=== PATIENT | female | born 1995 | race Caucasian/White ===

== ENCOUNTER 2018-07-03 09:18 | Emergency (ER) | payer MEDICAID, SELFPAY ==
[2018-07-03 09:19] VITALS: BP 129/85; PULSE 86; RESP 16; TEMP 36.6; O2SAT 97; BMI 39.9
--- NOTE | 2018-07-03 09:30 | ED.VISSUMM ---
- ER Visit Summary Date of Service: 07/03/18 Chief Complaint: Possible allergic reaction History of Present Illness: The patient is a 22 F presenting due to concern for an allergic reaction. Patient states she had her wisdom teeth out on Friday. She reports that yesterday she started to have a feeling of scratchiness in her throat and some difficulty swallowing and then today she developed some redness on the dorsum of her hands, in her antecubital spaces, and on her back. She reports that it is significantly itchy. She is concerned that maybe she was bit by something but nobody else in the house has any sort of similar skin rashes. Patient is of note taking hydrocodone for pain control from her wisdom tooth extraction. She is not on any sort of other medications. Physical Examination: Vital signs within normal limits. Well-nourished obese female no acute distress. Head normocephalic. Oropharynx is clear without any evidence of fullness, no evidence of stridor. Neck is supple. Heart was regular rate and rhythm. Respirations were nondistressed. Active range of motion of the hands and legs with no evidence of trauma. Examination of patient's skin shows some erythema on the dorsum of the hands. On the right index finger there are 2 punctate areas that potentially could be bug bites or just might be excoriations from patient scratching. She also has some areas of redness in her antecubital areas and on her back bilaterally. Test Results: None indicated Emergency Department Course and Treatment: Patient presented due to concern for allergic reaction. Patient is either having a mild allergy or is having a side effect to her [place]. She was given a dose of Kenalog if this is a case of an allergy I believe that that will alleviate this. Patient was given Vistaril for treatment of her symptoms. Disposition: Discharge Impression: 1. Urticaria This note was generated with [employer] dictation software. It may contain incorrect words, spelling, and punctuation that were not noted in review of the chart prior to signing ED Disposition - Plan for ED Patient: Disposition: Home or Assisted Living Chief Complaint: Allergic Reaction Diagnosis: Urticaria Instructions: ED Drug React Adverse Other Prescriptions: hydrOXYzine pamoate capsule [Vistaril] 50 mg PO TID PRN PRN #30 cap PRN Reason: Itching Referrals: NOT,DEFINED [NON-STAFF] -
[2018-07-03] MEDS: Triamcinolone Acetonide 40 MG/ML Vial IM (09:34)
[2018-07-03] MEDS: hydrOXYzine PAM 25 MG Capsule PO (09:34)
[2018-07-03 10:19] VITALS: BP 137/84; PULSE 87; RESP 18; O2SAT 100
== END 2018-07-03 10:19 | disposition home or self-care (01) ==
PROVIDERS: Emergency Provider Emergency Medicine
DX: L50.9 Urticaria, unspecified (principal); E66.9 Obesity, unspecified; Z72.0 Tobacco use
CPT/HCPCS: 96372; 99283

== ENCOUNTER → 2018-07-23 14:28 | Outpatient (CLI) | payer MEDICAID, SELFPAY ==
[2018-07-29 19:32] LABS: HPV Reflexed? NOT INDICATED
== END ==
PROVIDERS: Visit Provider Obstetrics & Gynecology
DX: Z12.4 Encounter for screening for malignant neoplasm of cervix (principal)
CPT/HCPCS: 88175; G0145

== ENCOUNTER → 2018-11-02 10:25 | Outpatient (CLI) | payer MEDICAID, SELFPAY ==
[2018-11-02 13:47] LABS: Hemoglobin A1c 5.3 % (4.2-6.3)
[2018-11-02 13:52] LABS: Progesterone Level 0.34 ng/mL (See Comment); hCG Titer Quant., Serum < 1 mIU/mL (<9 non-preg)
[2018-11-02 13:55] LABS: Follicle Stimulating Hormone 2.4 mIU/mL; Free T3 2.8 pg/mL (2.18-3.98); Glucose 110 mg/dL (74-106); Luteinizing Hormone 3.4 mIU/mL; T4 Free Direct 0.95 ng/dL (0.76-1.46); Thyroid Stim Hormone (TSH) 1.56 uIU/mL (0.358-3.74)
== END ==
PROVIDERS: Visit Provider Obstetrics & Gynecology
DX: N92.5 Other specified irregular menstruation (principal)
CPT/HCPCS: 36415; 82947; 83001; 83002; 83036; 84144; 84146; 84439; 84443; 84481; 84702

== ENCOUNTER 2019-01-29 09:45 | Emergency (ER) | payer MEDICAID, SELFPAY ==
[2019-01-29 09:46] VITALS: BP 138/75; PULSE 88; RESP 18; TEMP 36.5; O2SAT 98; BMI 36.0
[2019-01-29 09:58] VITALS: TEMP 36.5
--- NOTE | 2019-01-29 09:59 | ED.DCSUM_ITS ---
- ER Visit Summary Date of Service: 01/29/19 Chief Complaint: Cough and fever History of Present Illness: The patient is a 23 F who presents with cough and fever that has been getting worse over the past 2 days. Patient states her fever was up to 102 at home last night. Patient admits to sore throat and r hinorrhea. Patient states she has some shortness of breath with exertion. Patient describes the pain as a burning. Patient states this is localized to her chest. Patient states she is coughing up some green sputum. Patient admits to some nausea but denies any vomiting. Patient also admits to a headache and upper respiratory congestion. Physical Examination: Vital signs are stable. Patient is afebrile. Patient is in no acute distress. Oral mucosa is pink and moist. Oropharynx shows some postnasal drainage but was otherwise clear. Neck is supple. Trachea is midl ine. There is no JVD or lymphadenopathy noted. Heart was regular rate and rhythm. Lungs showed some rhonchi in the bases bilaterally. There is good respiratory effort noted. Abdomen is soft. There is no tenderness. Cranial nerves II through XII are intact. There are no focal motor or sensory deficits noted. Test Results: PA and lateral chest x-ray was obtained. There is no acute cardiopulmonary process noted. Emergency Department Course and Treatment: Patient felt better on reevaluation. Patient was advised that this is most likely a viral upper respiratory infection/bronchitis. Patient was advised antibiotics are not indicated at this time. Patient was given a prescription for Tessalon to take as needed for the c ough. Smoking cessation was advised. Patient was instructed to follow-up with her primary care physician in 5 to 7 days. Patient understood and was agreeable with the plan. All questions were answered. Disposition: Discharge home Impression: Viral upper respiratory infection with cough This note was generated with [employer] dictation software. It may contain incorrect words, spelling, and punctuation that were not noted in review of the chart prior to signing ED Disposition - Plan for ED Patient: Disposition: Home or Assisted Living Diagnosis: Viral upper respiratory tract infection with cough Instructions: ED Upper Resp Infec No Abx Tx, ED Smoking Cessation Prescriptions: Benzonatate [Tessalon [place]] 200 mg PO TID PRN PRN #20 cap PRN Reason: Cough Referrals: Care Physician,No Primary [Primary Care Provider] - Alyssia Rodriguez DO [STAFF PHYSICIAN] - 5-7 Days
--- NOTE | 2019-01-29 10:00 | RAD_ITS ---
STUDY: X-RAY CHEST REASON FOR EXAM: Female, 23 years old. Cough and hoarseness for 2 days. TECHNIQUE: Frontal and lateral views of the chest. COMPARISON: None. FINDINGS: The lungs are clear and expanded. There is no demonstrated pleural abnormality. Normal size heart. Normal mediastinum and [place]. Normal visualized pulmonary arteries. Normal visualized aortic arch and descending thoracic aorta. Normal visualized thoracic spine. Normal visualized ribs, clavicles, and shoulders. There is no demonstrated abnormality of the visualized soft tissue structures of the upper abdomen. RAD/Chest PA and Lateral IMPRESSION: Normal x-ray examination of the chest. Electronically Signed: Brant Duggan MD at 10:14 EDT , Service support ,
== END 2019-01-29 10:36 | disposition home or self-care (01) ==
PROVIDERS: Emergency Provider Emergency Medicine
DX: J06.9 Acute upper respiratory infection, unspecified (principal); R05 Cough; E66.9 Obesity, unspecified; F17.210 Nicotine dependence, cigarettes, uncomplicated
CPT/HCPCS: 71046; 99282

== ENCOUNTER 2020-10-20 20:29 | Emergency (ER) | payer MEDICAID, SELFPAY ==
[2020-10-20 20:30] VITALS: BP 122/89; PULSE 82; RESP 16; TEMP 36.2; O2SAT 100; BMI 33.6
--- NOTE | 2020-10-20 20:42 | US_ITS ---
STUDY: FIRST TRIMESTER OBSTETRICAL ULTRASOUND REASON FOR EXAM: Female, 25 years old DRIED BLOOD IN UNDERWEAR AND LOWER ABD PAIN FOR WEEKS MILD LMP: 08/30/2020 TECHNIQUE: Transvaginal. TECHNICAL QUALITY: Adequate. PRIOR ULTRASOUND: None. FINDINGS: There is visualization of a single gestational sac in a normal intrauterine position. The mean sac diameter (MSD) measures 1.0 cm, indicating an estimated gestational age (EGA) of 5 weeks, 5 days. The gestational sac shape is within normal limits. There is no demonstrated yolk sac. The placenta is non-visualized. There is no demonstrated embryo ( pole). The estimated gestation age (EGA) by LMP is 7 weeks, 2 days. The estimated date of delivery (TRISTON) by LMP is 06/06/2021. The estimated gestation age (EGA) by US is 5 weeks, 5 days. The estimated date of delivery (TRISTON) by US is 06/17/2021. The uterus measures 10.1 x 5.2 x 0.4 cm. There is no demonstrated uterine fibroid. The cervix is closed. The right ovary measures 3.2 x 2.1 x 2.1 cm. There is no right ovarian cyst. There is no visualized right adnexal mass or complex lesion. The left ovary measures 2.5 x 1.6 x 2.1 cm. There is no left ovarian cyst. There are prominent vessels within the left adnexa. It is indeterminate 1.0 x 1.4 cm cystic focus within the left adnexa may reflect a paraovarian cyst. There is no fluid in the cul de sac. US/Transvaginal w/Preg US IMPRESSION: Findings suggestive of an early intrauterine with an estimated gestational age of 5 weeks and 5 days. No yolk sac nor pole identified. Prominent vessels within the left adnexa may be secondary to pelvic congestion syndrome. Electronically Signed: Jada Johnson MD at 21:47 EST Tel , Service support ,
--- NOTE | 2020-10-20 20:43 | ED.VIS.GEN ---
History of Present Illness Chief Complaint: Vag Bld, Preg Informant: Patient Narrative: 25-year-old G4, P2 at approximately 7 to 8 weeks presents with concern for vaginal bleeding and abdominal pain. States that she had a large amount of blood on tissue paper when wiping after urinating approximately 1 hour ago. States that she has had abdominal cramping and lower abdominal pain over the past 2 to 3 days. States that she has had 2 previous miscarriages. Denies any fever or chills. Denies any vaginal trauma. Denies any passage of tissue. Past Medical History - Allergies and Home Meds Allergies/Adverse Reactions: Allergies No Known Allergies Allergy (Verified 10/20/20 20:29) Primary Care Physician: Care Physician,No Primary [Primary Care Provider] - Prior records reviewed: Yes Past Medical History: None Surgical History: no surgical history Lives: Spouse/ Significant Other Smoking Status: Current every day smoker Alcohol: None Drugs: None Review of Systems General: Denies: Chills, Fever, Sweats Eyes: Denies: Visual changes - bilaterally, Diplopia ENT: Denies: Rhinorrhea, Sore throat Cardiovascular: Denies: Chest pain, Palpitations Respiratory: Denies: Dyspnea, Cough, Dyspnea on exertion Gastrointestinal: Denies: Abdominal pain, Nausea, Vomiting, Diarrhea, Melena, Hematochezia Genitourinary: Reports: - - vaginal bleeding and pelvic pain. Denies: Dysuria, Hematuria, Frequency Musculoskeletal: Denies: Back pain, Extremity Pain Skin: Denies: Rash, Wounds Neurological: Denies: Headache, Weakness, Numbness Physical Exam Vital Signs/Narrative: Vital Signs Temp Pulse Resp BP Pulse Ox 10/20/20 20:30 97.2 F L 82 16 122/89 H 100 Inital Vital Signs reviewed: Yes General: Well nourished, Well developed, No Acute Distress Head: Normocephalic, Atraumatic Eyes: Perrl, EOMI ENT: Moist mucous membranes, No rhinorrhea Neck: Supple, Nontender Cardiovascular: Regular rate, Regular rhythm, No murmurs Respiratory: No distress, CTA bilaterally, Chest nontender Abdomen: Soft, Nontender, Nondistended, Normal bowel sounds Back: Nontender, Normal Inspection Extremities: Nontender, No edema Skin: Normal color, No rash Neurological: Alert, Oriented x3, Cranial nerves II-XII grossly intact, Normal Strength, Normal Sensation Psychological: Normal affect, Normal Mood Diagnostic/Tx/Re-eval Clinical Impression(s) from Imaging Studies Obstetrics Ultrasound 10/20/20 20:42 IMPRESSION: Findings suggestive of an early intrauterine with an estimated gestational age of 5 weeks and 5 days. No yolk sac nor pole identified. Prominent vessels within the left adnexa may be secondary to pelvic congestion syndrome. Electronically Signed: Jada Johnson MD at 21:47 EST Tel , Service support , Laboratory Data 10/20/20 10/20/20 20:44 21:00 HCG, Quant 6714 H Urine Color Yellow Urine Clarity Clear Urine pH 5.0 Ur Specific [place] 1.025 Urine Protein 15 H Urine Glucose (UA) Normal Urine Ketones 5 H Urine Occult Blood 250 H Urine Nitrite Negative Urine Bilirubin Negative Urine Urobilinogen Normal Ur Leukocyte Esterase 100 H Urine RBC 0-5 SEEN Urine WBC 5-10 SEEN Ur Squamous Epith Cells 5-10 SEEN Urine Bacteria 0 SEEN Urine Mucus 2+ - Medical Decision Making Patient appears well and nontoxic. Vital signs within normal limits. No significant vaginal bleeding. hCG of 6700. Transvaginal ultrasound shows a gestational sac without yolk sac. Estimated age 5 weeks. Patient's last menstrual period was proxy 7 weeks. Patient was advised she needs to have her hCG rechecked on Friday at her [facility]. Asked return for any increasing pain. No evidence of adnexal mass. Patient agreeable and stable at time of discharge. Impression: 1. Threatened ED Disposition - Plan for ED Patient: Disposition: Home or Assisted Living Instructions: ED Possible Miscarriage ... Additional Instructions: Please see your OBGYN on Monday 10/23 for repeat HCG. Return for worsening pain or heavy bleeding.
[2020-10-20 20:52] LABS: Bacteria 0 SEEN /hpf (None Seen)
[2020-10-20 20:57] LABS: Color, Urine Yellow (Yellow); Glucose, Dipstick Normal (Normal); Ketone-Dipstick 5 mg/dl (Negative); Leukocyte Esterase-Dipstick 100 /ul (Negative); Nitrite-Dipstick Negative (Negative); Occult Blood-Urine 250 /ul (Negative); Protein-Dipstick 15 mg/dl (Negative); Specific Gravity, Urine 1.025 (1.002-1.030); Urine Bilirubin Dipstick Negative (Negative); Urine Clarity Clear (Clear); Urine Urobilinogen Normal (Normal)
[2020-10-20 21:18] LABS: Red Blood Cells-Urine 0-5 SEEN /hpf (0-5); White Blood Cells 5-10 SEEN /hpf (0-5)
[2020-10-20 21:19] LABS: Mucous, Urine 2+ /hpf (<or=2+); Squamous Epithelial Cells - UA 5-10 SEEN /hpf (5-10)
[2020-10-20 21:46] LABS: hCG Titer Quant., Serum 6714 mIU/mL (1-3)
== END 2020-10-20 22:43 | disposition home or self-care (01) ==
PROVIDERS: Emergency Provider Emergency Medicine
DX: O20.0 Threatened abortion (principal); O99.331 Smoking (tobacco) complicating pregnancy, first trimester; F17.200 Nicotine dependence, unspecified, uncomplicated; Z3A.01 Less than 8 weeks gestation of pregnancy
CPT/HCPCS: 76817; 81001; 84702; 99282

== ENCOUNTER → 2020-11-07 13:53 | Outpatient (CLI) | payer MEDICAID, SELFPAY ==
[2020-10-20 20:30] VITALS: BMI 33.6
[2020-11-07 14:59] LABS: T4 Free Direct 1.03 ng/dL (0.76-1.46); Thyroid Stim Hormone (TSH) 0.96 uIU/mL (0.358-3.74)
[2020-11-07 15:06] LABS: hCG Titer Quant., Serum 30892 mIU/mL (1-3)
[2020-11-10 16:08] LABS: Dilute Prothrombin Time (dPT) 34.9 sec (0.0-55.0); Dilute Russell Viper Venom 37.1 sec (0.0-47.0); PTT-LA 34.5 sec (0.0-51.9); Thrombin Time 16.2 sec (0.0-23.0); dPT Confirm Ratio 1.19 Ratio (0.00-1.40)
[2020-11-10 16:41] LABS: Anti-Cardiolipin Ab, IgA, Qn < 9 APL U/mL (0-11); Anti-Cardiolipin Ab, IgG, Qn 13 GPL U/mL (0-14); Anti-Cardiolipin Ab, IgM, Qn 15 MPL U/mL (0-12); Beta-2-Glycoprotein I IgA <9 (0-25); Beta-2-Glycoprotein I IgG <9 (0-20); Beta-2-Glycoprotein I IgM <9 (0-32); Interpretation Comment: (.)
== END ==
PROVIDERS: Visit Provider Student in an Organized Health Care Education/Training Program
DX: O03.9 Complete or unspecified spontaneous abortion without complication (principal); O26.20 Pregnancy care for patient with recurrent pregnancy loss, unspecified trimester; Z3A.00 Weeks of gestation of pregnancy not specified
CPT/HCPCS: 36415; 84439; 84443; 84702; 86146; 86147

== ENCOUNTER 2020-11-13 02:42 | Observation (INO) | payer MEDICAID, SELFPAY ==
[2020-11-13] VITALS (13 sets, daily range): BP systolic 98–131; BP diastolic 43–108; PULSE 62–134; RESP 16–22; TEMP 36.3–38.1; O2SAT 93–98; BMI 34.7; BMI 34.1
--- NOTE | 2020-11-13 02:53 | US_ITS ---
STUDY: FIRST TRIMESTER OBSTETRICAL ULTRASOUND REASON FOR EXAM: Female, 25 years old . Fever, chills, nausea, vaginal bleeding with clots. Possible incomplete miscarriage, questionable septic . LMP: 08/30/2020. TECHNIQUE: Transvaginal. TECHNICAL QUALITY: Adequate. PRIOR ULTRASOUND: October 20, 2020. FINDINGS: No intrauterine gestational sac. No yolk sac or embryo. The estimated gestation age (EGA) by LMP is 10 weeks, 5 days. The estimated date of delivery (TRISTON) by LMP is 06/06/2021.. The uterus measures 9.8 x 6.4 x 5.5 cm. There is no demonstrated uterine fibroid. Heterogeneous echogenic material within the endometrial canal in the lower uterine segment. Endometrial thickness 11 mm. Diffuse increased vascular flow in the uterus. Clinically, boom pump operator reports patient was bleeding heavily during the exam with clots. The right ovary measures 3.3 x 2.2 x 2.9 cm. There is no right ovarian cyst. There is no visualized right adnexal mass or complex lesion. The left ovary measures 3.9 x 1.8 x 1.7 cm. There is no left ovarian cyst. There is no visualized left adnexal mass or complex lesion. Minimal free fluid in the cul-de-sac. US/Transvaginal w/Preg US IMPRESSION: Heterogeneous material within the endometrial canal may represent retained products of conception. Endometritis is a consideration. No intrauterine gestation. Electronically Signed: Fletcher Desir MD at 4:29 EST , Service support ,
--- NOTE | 2020-11-13 02:56 | ED.DCSUM_ITS ---
- ER Visit Summary Date of Service: 11/13/20 Chief Complaint: Pelvic pain with vaginal bleeding History of Present Illness: The patient is a 25 F G4, P1 AB 3 with those being miscarriages. Patient has no other significant past medical history. She has never had any DATA DELIVERABLES MANAGER surgeries in the past. Patient's last menstrual period was August 30, 2020. In October there was concern that she may have had a threatened miscarriage. Since that time she was diagnosed with an incomplete miscarriage. She is currently on pain medication and misoprostol. States she has had more pain some vaginal bleeding with mucus-like discharge in the last several days. She also has developed fever and chills in the last couple days. Denies dysuria. Denies vomiting or diarrhea. Physical Examination: Young female accompanied by her significant other. Vital signs are stable she does have a temperature of 100.6 orally. She is tachycardic. H EENT exam unremarkable. Neck nontender. Lungs clear to auscultation bilaterally. Heart tachycardic no murmur. Rate about 130. Abdomen soft. Nondistended. She does have suprapubic and bilateral lower quadrant tenderness. Patient is moving all 4 extremities. No edema. Neurologically she is awake and alert with no focal motor deficits. Pelvic exam done with nurse and patient's present in the room. External exam unremarkable. Speculum exam shows vaginal bleeding mild to moderate with clots. Tender uterus. No significant discharge. Test Results: CBC shows a normal white count of 7. Hemoglobin 11.9 which is her baseline. Chemistries unremarkable normal creatinine and gap. Urinalysis pending. Transvaginal pelvic ultrasound shows retained products in the uterus with increased uterine vascularity. This is per the industrial engineering technician that I discussed the results with after the exam. Awaiting formal radiology interpretation. This would be consistent with endometritis post miscarriage. Emergency Department Course and Treatment: AB 3 female with reported incomplete miscarriage concern now is for a septic . Pelvic ultrasound and labs are being obtained. She will be treated with a liter of IV fluids, IV morphine and Zofran for pain and nausea. OB will be notified. Treatment Plan: Patient's history and exam and ultrasound are consistent with endometritis post miscarriage. Patient will be started on IV clindamycin and IV gentamicin. I discussed her care with Dr. Dean Bartlett who is on-call for [facility] DATA DELIVERABLES MANAGER. Patient will be admitted to his service. Disposition: admission Impression: Acute endometritis status post miscarriage (septic miscarriage) This note was generated with [employer] dictation software. It may contain incorrect words, spelling, and punctuation that were not noted in review of the chart prior to signing ED Disposition - Plan for ED Patient: Referrals: Care Physician,No Primary [Primary Care Provider] -
[2020-11-13] MEDS: 0.9% Normal Saline 1,000 ML 1000 ML IV (03:07)
[2020-11-13] MEDS: morphine 8 MG/ML Syringe IV (03:08)
[2020-11-13] MEDS: Ondansetron 4 MG/2 ML Vial IV (03:08)
[2020-11-13 03:14] LABS: Absolute Lymphocyte Count 0.62 X10^3/uL (0.83-4.51); Absolute Neutrophil Count 6.3 X10^3/uL (2.0-7.7); Basophil# 0.02 X10^3/uL; Basophil% 0.3 % (0-1); Eosinophil# 0.01 X10^3/uL; Eosinophils% 0.1 % (0-5); Hemoglobin 11.9 g/dL (12.0-15.0); Lymphocyte # 0.62 X10^3/ul (4.0); Lymphocyte % 8.4 % (19-41); Mean Corp Hgb Conc 33.1 g/dL (32-36); Mean Corpuscular Hgb 27.3 pg (27.0-32.0); Mean Corpuscular Volume 82.6 fL (81-99); Mean Platelet Vol. 9.9 fl (6.2-12.0); Monocyte# 0.48 X10^3/uL; Monocyte% 6.5 % (0-10); NRBC Flagged by Analyzer 0 % (0-5); Neutrophil # 6.25 X10^3/uL (2.7-7.7); Neutrophil % 84.3 % (47-70); Platelet Count 173 K/mm3 (150-450); RBC Distribution Width CV 13.2 % (11.6-14.6); RBC Distribution Width SD 40.1 fl (35.1-43.9); Red Blood Count 4.36 M/mm3 (4.2-5.4); White Blood Count 7.4 K/mm3 (4.4-11.0)
[2020-11-13 03:28] LABS: Anion Gap 8 (5-15); BUN 5 mg/dL (7-18); BUN/Creat Ratio 5.6 RATIO (10-20); Calcium,Total 8.9 mg/dL (8.5-10.1); Chloride 106 mmol/L (98-107); EST Glomerular Filtration Rate 81 mL/min (>60); Est Glom Filt Rate - Afr Amer 98 mL/min (>60); Estimated Creatinine Clearance 92.92 ml/min; Glucose 161 mg/dL (74-106); Potassium 3.9 mmol/L (3.5-5.1); Sodium Level 139 mmol/L (136-145)
[2020-11-13 04:50] LABS: Bacteria 0 SEEN /hpf (None Seen); Color, Urine Yellow (Yellow); Glucose, Dipstick Normal (Normal); Ketone-Dipstick 5 mg/dl (Negative); Leukocyte Esterase-Dipstick 25 /ul (Negative); Mucous, Urine 0 SEEN /hpf (<or=2+); Nitrite-Dipstick Negative (Negative); Occult Blood-Urine 250 /ul (Negative); Protein-Dipstick 15 mg/dl (Negative); Urine Bilirubin Dipstick Negative (Negative); Urine Clarity Clear (Clear); Urine Urobilinogen 1 mg/dl (Normal)
[2020-11-13] MEDS: Ketorolac 30 MG/ML Syringe IV (04:50)
[2020-11-13] MEDS: morphine 8 MG/ML Syringe 6 MG IV (04:51)
[2020-11-13 04:56] LABS: White Blood Cells 0-5 SEEN /hpf (0-5)
[2020-11-13 04:57] LABS: Red Blood Cells-Urine 5-10 SEEN /hpf (0-5); Squamous Epithelial Cells - UA 0-5 SEEN /hpf (5-10)
[2020-11-13] MEDS: Lactated Ringers 1,000 ML 125 ML IV ×2 (06:09→22:19)
[2020-11-13] MEDS: Acetaminophen 500 MG Tablet 1000 MG PO ×2 (06:16→18:34)
--- NOTE | 2020-11-13 07:31 | PCM.HPOB.BLA ---
History and Physical Chief complaint: Pelvic pain History of present illness: 25-year-old G3, P0 was seen in the office on 11/07/2020 noted to have ultrasound findings that confirmed blighted ovum missed . Patient elected for Cytotec medical induction at home. Patient took 800 mcg of Cytotec on the evening of 11/07/2020. Had pelvic cramping some bleeding. Then pain became worse and patient arrived to the ER with severe pelvic pain. Denies headache, visual changes, chest pain, shortness of breath, right upper quadrant pain. Obstetric history G1 through 3. SAB Past medical history: None Medications: None Past surgical history: Tonsils and adenoids Allergies: No known drug allergies Family history: Denies a history of DVT or PE Review of systems: Besides the above pertinent positives a full review of systems was performed and found to be negative Physical exam: Vital Signs Temp Pulse Resp BP Pulse Ox 11/13/20 05:50 99.1 F 93 20 H 102/52 L 96 11/13/20 05:07 100.6 F H 105 H 17 123/60 H 98 11/13/20 02:42 100.6 F H 134 H 22 H 131/108 H 97 General: Normal-appearing no acute distress HEENT: Normocephalic atraumatic no cervical of adenopathy Cardiac/respiratory: Nonlabored breathing, no use of accessory muscles Abdomen: Soft, nontender Extremities: No peripheral edema normal peripheral pulses Neurology: Grossly intact Psych: Normal affect normal demeanor nonpressured speech Laboratory Tests 11/13/20 11/13/20 11/13/20 Range/Units 04:40 03:05 03:05 WBC 7.4 (4.4-11.0) K/mm3 RBC 4.36 (4.2-5.4) M/mm3 Hgb 11.9 L (12.0-15.0) g/dL Hct 36.0 L (37-47) % MCV 82.6 (81-99) fL MCH 27.3 (27.0-32.0) pg MCHC 33.1 (32-36) g/dL RDW Std Deviation 40.1 (35.1-43.9) fl RDW Coeff of [place]qu[place] 13.2 (11.6-14.6) % Plt Count 173 (150-450) K/mm3 MPV 9.9 (6.2-12.0) fl Immature Gran % (Auto) 0.400 (0.0-0.9) % Neut % (Auto) 84.3 H (47-70) % Lymph % (Auto) 8.4 L (19-41) % [place] % (Auto) 6.5 (0-10) % Eos % (Auto) 0.1 (0-5) % Baso % (Auto) 0.3 (0-1) % Absolute Neuts (auto) 6.3 (2.0-7.7) X10^3/uL Absolute Lymphs (auto) 0.62 L (0.83-4.51) X10^3/uL Nucleated RBC % 0 (0-5) % Sodium 139 (136-145) mmol/L Potassium 3.9 (3.5-5.1) mmol/L Chloride 106 (98-107) mmol/L Carbon Dioxide 25.0 (21.0-32.0) mmol/L Anion Gap 8 (5-15) BUN 5 L (7-18) mg/dL Creatinine 0.90 (0.55-1.02) mg/dL Estim Creat Clear Calc 92.92 ml/min Est GFR (MDRD) Af Amer 98 (>60) mL/min Est GFR (MDRD) Non-Af 81 (>60) mL/min BUN/Creatinine Ratio 5.6 L (10-20) RATIO Glucose 161 H (74-106) mg/dL Calcium 8.9 (8.5-10.1) mg/dL Urine Color Yellow (Yellow) Urine Clarity Clear (Clear) Urine pH 7.0 (5.0 - 8.0) Ur Specific [place] 1.010 (1.002-1.030) Urine Protein 15 H (Negative) mg/dl Urine Glucose (UA) Normal (Normal) mg/dl Urine Ketones 5 H (Negative) mg/dl Urine Occult Blood 250 H (Negative) /ul Urine Nitrite Negative (Negative) Urine Bilirubin Negative (Negative) mg/dL Urine Urobilinogen 1 H (Normal) mg/dl Ur Leukocyte Esterase 25 H (Negative) /ul Urine RBC 5-10 SEEN (0-5) /hpf Urine WBC 0-5 SEEN (0-5) /hpf Ur Squamous Epith Cells 0-5 SEEN (5-10) /hpf Urine Bacteria 0 SEEN (None Seen) /hpf Urine Mucus 0 SEEN (<or=2+) /hpf Assessment and plan: 25-year-old G3, P0 status post Cytotec for known missed with pelvic cramping and now fever. Ultrasound findings with thick endometrium possibly retained products of conception. Based on fever and findings diagnostic of endometritis. Patient started on gentamicin and clindamycin IV. To remain n.p.o. Oxycodone for pain. Educated patient on findings in need of suction dilation and curettage. Patient understands that the risks include but are not limited to visceral or vascular injury, prolonged hospitalization, blood loss need for transfusion, reoperation. Patient stated understanding wished proceed. Patient understands the risk of the bright blood transfusion include blood transfusion reaction such as fever, infection including HIV and hepatitis. Patient agrees to blood transfusion if necessary. All questions were answered consent was signed. Covid testing today. Suction dilation and curettage today at noon.
--- NOTE | 2020-11-13 12:15 | POC_PTH ---
PATIENT: TORSTEN BURTON LOC: MS3 U#:[id number] AGE/SX: 25/ ROOM: MS310 RE11/13/[address]: Dr. Dean Bartlett MD : 1995 BED: 1 DIS: 11/14/2020 SPEC #: [id number] RECD: 11/13/20 14:35 STATUS: ASHLEY REQ #: [id number] OLIVA: 11/13/20 12:[address]: Dean Bartlett DEPT: SURGICAL PATHOLOGY RECD BY: Ailyn Landry ENTERED: 11/14/20 07:46 SP TYPE: PROD CONC OTHR DR: No Primary Care Phys Tissues: Product of conception, NOS Procedures: Surgery Specimen Level IV HEADER OPERATION: Suction dilation and curettage PRE-OP DIAGNOSIS: Incomplete with pelvic cramping TISSUE SUBMITTED: Products of conception MICROSCOPIC DIAGNOSIS Products of conception: [place], gestational endometrium and immature chorionic villi (products of conception). SJ:altagracia 11/15/2020 MICROSCOPIC DESCRIPTION Slides are reviewed. GROSS DESCRIPTION Received in fixative is one container labeled with the patient's name and designated products of conception. The specimen consists of multiple fragments of pink hemorrhagic soft tissue that in aggregate measure 6 x 4 x 2 cm. tissue is not identified. Adult Education Teacher tissue is submitted in three cassettes. / JOHN:altagracia 11/14/20 TC:5 CPT: 61903
[2020-11-13] MEDS: Lubricating Jelly 60 GM Tube 30 GM TOPICAL (12:18)
--- NOTE | 2020-11-13 12:36 | PCM.OPRPT ---
Report of Operation Date of Procedure: 11/13/20 Pre-Operative Diagnosis: Incomplete , endometritis Post-Operative Diagnosis: Incomplete , endometritis Surgery/Procedure Performed:: Ultrasound-guided suction dilation curettage Description of Surgical Findings:: Surgeon: Dean Bartlett MD Anesthesia: MAC EBL: 25 cc Urine output 150 cc IV fluids: 400 cc Complications: None Specimen: Products of conception Findings: Thickened endometrial lining on ultrasound. Minimal products of conception. Postoperative bedside ultrasound thin endometrial stripe, good hemostasis. Consent: 25-year-old diagnosed with missed in office given Cytotec and Cytotec taken on 11/07/2020 with pelvic cramping passing of clots found to have fever in the ER diagnosed with endometritis and found to have thickened endometrial stripe concern for retained products of conception. Patient in need of suction dilation and curettage. Patient understands the risk of the procedure include but are not limited to visceral vascular injury, prolonged hospitalization, blood loss need for transfusion, reoperation. Patient educated on products of conception for genetic screening, patient declines. Patient state understanding wish to proceed. All questions were answered consent was signed. Procedure: Patient was brought back to the OR where MAC anesthesia found to be adequate. Patient status post gentamicin and clindamycin. Patient prepared and draped in dorsolithotomy position with yellowfin stirrups. A weighted speculum placed in the posterior aspect of the vagina. Cervical dilators were used to dilate the cervix. 7 mm curved curette was used for suction curettage. Curettage was performed in all 4 quadrants under ultrasound guidance. Thin endometrial stripe was noted after curettage. Products sent to pathology. 10 units of Pitocin was placed in 1 L of LR to run postoperatively. Good hemostasis was noted. All counts correct x2. Patient tolerated procedure well was brought to recovery in a stable condition.
--- NOTE | 2020-11-13 12:40 | DCINST_ITS ---
<Dean Bartlett - Last Filed: 11/13/20 12:40> Discharge Diet: No Restrictions Discharge Activity: Return to Normal Activity, May Drive, May Shower, - - no tub baths for 2 weeks May resume sexual activity in: 4-6 weeks Weight Bearing Status: Weight bearing as tolerated Call your doctor if your incision/area has: Continuous Slow Oozing, Foul Smelling Discharge Call your doctor if you observe: Fever of 101 or Higher, Shortness of breath, Chest pain Allergies/Adverse Reactions: Allergies No Known Allergies Allergy (Verified 11/13/20 02:45) Medications to take at Discharge Ondansetron HCl 4 mg PO Q6H PRN PRN 11/13/20 Oxycodone HCl 5 mg PO Q4H PRN PRN 11/13/20 Primary Care Physician: Care Physician,No Primary [Primary Care Provider] - Test Results: Test results from this visit will be discussed in further detail at your follow- up appointment, if applicable. Please Follow Up With: Dean Bartlett MD When: 2 weeks <Shannan Bartlett - Last Filed: 11/14/20 06:53> Test Results: Test results from this visit will be discussed in further detail at your follow- up appointment, if applicable. When: 1 weeks
--- NOTE | 2020-11-13 13:16 | CASEMGMT ---
Social Work Note SW reviewed chart. Pt with history of multiple miscarriages, recent miscarriage. SW attempted twice to meet with pt to provide support, pt off floor both times. SW will try again as time allows. Dorita Velez DATA ARCHITECT, RESERVE OFFICER
[2020-11-13] MEDS: 0.9% Saline Lock 10 ML Syringe IV (22:19)
[2020-11-13] MEDS: Docusate Sodium 100 MG Capsule PO (22:26)
[2020-11-14] MEDS: Acetaminophen 500 MG Tablet 1000 MG PO ×2 (00:21→05:42)
[2020-11-14 00:24] VITALS: BP 88/39; PULSE 69; RESP 16; TEMP 37.1; O2SAT 98
[2020-11-14 02:25] VITALS: BP 100/46; PULSE 77; RESP 16; TEMP 37.2; O2SAT 96
[2020-11-14 05:54] LABS: Hematocrit 34.4 % (37-47); Hemoglobin 10.6 g/dL (12.0-15.0); Mean Corp Hgb Conc 30.8 g/dL (32-36); Mean Corpuscular Hgb 27.3 pg (27.0-32.0); Mean Corpuscular Volume 88.7 fL (81-99); Mean Platelet Vol. 10.2 fl (6.2-12.0); Platelet Count 145 K/mm3 (150-450); RBC Distribution Width CV 13.5 % (11.6-14.6); RBC Distribution Width SD 44.1 fl (35.1-43.9); Red Blood Count 3.88 M/mm3 (4.2-5.4)
--- NOTE | 2020-11-14 06:55 | PN.OBGYN_ITS ---
Subjective: POD#1 Feeling well, mild cramping. - Physical Exam Vitals/I&O's: Vital Signs Temp Pulse Resp BP Pulse Ox 98.9 F 77 16 100/46 L 96 11/14/20 02:25 11/14/20 02:25 11/14/20 02:25 11/14/20 02:25 11/14/20 02:25 Oxygen Delivery Method Room Air Weight: 98.8 kg Body Mass Index (BMI) 34.1 Intake and Output for Last 24 Hours 11/12/20 11/13/20 11/14/20 23:59 23:59 23:59 Intake Total 3175.75 / 3175.75 1043.5 / 1043.5 Output Total 150 / 150 Balance 3025.75 / 3025.75 1043.5 / 1043.5 General: Alert, Oriented x3, No apparent distress HEENT: Atraumatic, Normocephalic Neck: Supple Lungs: Normal air movement Cardiovascular: Regular rate Abdomen: Soft Extremities: No edema Neurological: Cranial nerves II-XII grossly intact Psych/Mental Status: Normal Affect, Appropriate Microbiology Past 72 Hours 11/13/20 08:55 Mucosa - Nose SARS-CoV-2 Antigen (Rapid) - Final Laboratory Results 11/13/20 08:48: Blood Type O POSITIVE, Antibody Screen NEGATIVE 11/14/20 05:38: WBC 7.0, RBC 3.88 L, Hgb 10.6 L, Hct 34.4 L, MCV 88.7 D, MCH 27.3, MCHC 30.8 L D, RDW Std Deviation 44.1 H, RDW Coeff of Joaquina 13.5, Plt Count 145 L, MPV 10.2 Current Medications Acetaminophen (Acetaminophen 500 Mg Tablet) 1,000 mg PO Q6 JEFF Last Admin: 11/14/20 05:42 Dose: 1,000 mg Documented by: Docusate Sodium (Docusate Sodium 100 Mg Capsule) 100 mg PO BID JEFF Last Admin: 11/13/20 22:26 Dose: 100 mg Documented by: Lactated Ringer's () 1,000 mls @ 125 mls/hr IV .Q8H [facility] Last Infusion: 11/14/20 06:25 Dose: 125 mls/hr Documented by: Clindamycin Phosphate 900 mg/ (Dextrose) 106 mls @ 150 mls/hr IV Q8 [facility] Last Infusion: 11/14/20 06:53 Dose: Infused Documented by: Nutritional Formula (Lactose Free) (Ensure Enlive 120 Ml Liquid) 120 ml PO TIDCM [facility] Last Admin: 11/13/20 18:13 Dose: Not Given Documented by: Ondansetron HCl (Ondansetron 4 Mg/2 Ml Vial) 4 mg IV Q4H PRN PRN PRN Reason: NAUSEA Ondansetron HCl (Ondansetron Odt 4 Mg Tablet) 4 mg PO Q6H PRN PRN PRN Reason: NAUSEA Oxycodone HCl (Oxycodone 5 Mg Tablet) 5 mg PO Q4H PRN PRN PRN Reason: Pain Score 4-10 Sodium Chloride (0.9% Saline Lock 10 Ml Syringe) 10 - 40 ml IV UD PRN PRN Reason: SALINE FLUSH Last Admin: 11/13/20 22:19 Dose: 10 ml Documented by: Medical Necessity - Tobacco Use Smoking Status: Current every day smoker Tobacco Use: Cigarettes Assessment/Plan All Active Problems SROM (spontaneous rupture of membranes) (Acute) 40 weeks gestation of (Acute) POD#1 s/p D&C for incomplete and endometritis. No evidence of leukocytosis. Patient has been afebrile for greater than 24 hours at this time. Stable for discharge home. Will continue on Augmentin and Flagyl for 10 days. Follow-up in office 1 week. Precautions reviewed.
[2020-11-14 07:45] VITALS: O2SAT 95
--- NOTE | 2020-11-14 09:01 | CASEMGMT ---
Social Work Note SW attempted to meet with pt today, pt sleeping. Pt didn't wake up when this worker entered the room. SW to try again before pt discharges as time allows. Dorita Velez STONE SETTER APPRENTICE, WEB ARCHITECT
[2020-11-14 09:24] VITALS: BP 95/56; PULSE 72; RESP 16; TEMP 37.2; O2SAT 96
== END 2020-11-14 09:35 | disposition home or self-care (01) ==
LOC: ED 03:20 → MS3 07:29
PROVIDERS: Admitting Provider Obstetrics & Gynecology; Emergency Provider Emergency Medicine; Visit Provider Obstetrics & Gynecology
PROC: (CPT 59812; principal; 2020-11-13 12:00)
DX: O03.4 Incomplete spontaneous abortion without complication (principal); O03.0 Genital tract and pelvic infection following incomplete spontaneous abortion; F17.210 Nicotine dependence, cigarettes, uncomplicated
CPT/HCPCS: 01965; 59812; 36415; 76817; 80048; 81001; 85025; 85027; 86850; 86900; 86901; 87426; 88305; 96361; 96365; 96366; 96367; 96375; 96376; 97802; 99218; 99284; 99406; J7030; J7120; A4216; G0378; J2405

== ENCOUNTER 2020-11-16 06:07 | Emergency (ER) | payer MEDICAID, SELFPAY ==
[2020-11-13 10:31] VITALS: BMI 34.1
[2020-11-16 06:07] VITALS: BP 132/78; PULSE 76; RESP 18; TEMP 36.8; O2SAT 97; BMI 34.7
--- NOTE | 2020-11-16 06:11 | US_ITS ---
STUDY: ULTRASOUND OF THE FEMALE PELVIS - COMPLETE REASON FOR EXAM: Female, 25 years old. pelvic pain s/p d and c LMP: 08/30/2020 TECHNIQUE: Transabdominal and Transvaginal TECHNICAL QUALITY: Adequate. COMPARISON: 11/13/2020 FINDINGS: The uterus is anteverted and is in a midline position. The uterus measures 11.1 x 5.6 x 5.2 cm. Normal uterine cervix. The endometrium measures 6 mm in thickness, and is hyperechoic. There is no demonstrated endometrial mass. There is no demonstrated myometrial mass. I.U.D. - The patient does not have an I.U.D. The right ovary is visualized. The right ovary measures 2.2 x 2.1 x 1.9 cm. There is no right ovarian cyst or ovarian mass. There is no visualized right adnexal mass or complex lesion. There is normal arterial and normal venous vascularity. The left ovary is visualized. The left ovary measures 1.7 x 2.6 x 1.7 cm. There is no left ovarian cyst or ovarian mass. There is no visualized left adnexal mass or complex lesion. There is normal arterial and normal venous vascularity. There is no fluid in the cul-de-sac. The pre void volume of the bladder was ml. The post void volume of the bladder was ml. Polycystic ovary disease: No. US/Pelvic (Non ) IMPRESSION: Normal female pelvis. No retained products of conception. Electronically Signed: Jalyen Villatoro MD at 11:14 EST Tel , Service support ,
[2020-11-16 06:22] LABS: Bacteria 0 SEEN /hpf (None Seen); Mucous, Urine 0 SEEN /hpf (<or=2+)
[2020-11-16 06:24] LABS: Color, Urine Yellow (Yellow); Glucose, Dipstick Normal (Normal); Ketone-Dipstick 5 mg/dl (Negative); Leukocyte Esterase-Dipstick 100 /ul (Negative); Nitrite-Dipstick Negative (Negative); Occult Blood-Urine 50 /ul (Negative); Protein-Dipstick 15 mg/dl (Negative); Urine Bilirubin Dipstick Negative (Negative); Urine Clarity Clear (Clear); Urine Urobilinogen 1 mg/dl (Normal)
[2020-11-16 06:25] LABS: Absolute Lymphocyte Count 1.58 X10^3/uL (0.83-4.51); Absolute Neutrophil Count 7.3 X10^3/uL (2.0-7.7); Basophil# 0.02 X10^3/uL; Basophil% 0.2 % (0-1); Eosinophil# 0.08 X10^3/uL; Eosinophils% 0.8 % (0-5); Hematocrit 34.3 % (37-47); Hemoglobin 11.3 g/dL (12.0-15.0); Lymphocyte # 1.58 X10^3/ul (4.0); Lymphocyte % 16.5 % (19-41); Mean Corp Hgb Conc 32.9 g/dL (32-36); Mean Corpuscular Hgb 27.1 pg (27.0-32.0); Mean Corpuscular Volume 82.3 fL (81-99); Mean Platelet Vol. 9.5 fl (6.2-12.0); Monocyte# 0.58 X10^3/uL; Monocyte% 6.1 % (0-10); NRBC Flagged by Analyzer 0 % (0-5); Neutrophil # 7.25 X10^3/uL (2.7-7.7); Neutrophil % 75.8 % (47-70); Platelet Count 225 K/mm3 (150-450); RBC Distribution Width CV 13.2 % (11.6-14.6); Red Blood Count 4.17 M/mm3 (4.2-5.4); White Blood Count 9.6 K/mm3 (4.4-11.0)
[2020-11-16] MEDS: Morphine 4 MG/ML Syringe IV ×2 (06:26→09:21)
[2020-11-16 06:30] LABS: Red Blood Cells-Urine 0-5 SEEN /hpf (0-5); Squamous Epithelial Cells - UA 0-5 SEEN /hpf (5-10); White Blood Cells 5-10 SEEN /hpf (0-5)
--- NOTE | 2020-11-16 06:35 | ED.VISSUMM ---
- ER Visit Summary Date of Service: 11/16/20 Chief Complaint: Pelvic pain History of Present Illness: The patient is a 25 F G4, P1, AB 3 who presents with pelvic pain. She started having pain 3 days ago. She was attempting to had a miscarriage at home using Cytotec. She had increased bleeding so she came into the emergency department. She had a D and C performed by Dr. Bartlett at that time. She states that she has had an increase of pain over the past couple of days with the worst being this morning. The cramping has worsened. She denies fevers. She is been trying Tylenol and ibuprofen without any relief. She does admit to still having some vaginal bleeding. Physical Examination: Vital signs reviewed. HEENT exam unremarkable. Heart is regular rate and rhythm without murmurs. Lungs are clear to auscultation. Abdomen is soft with tenderness in the lower part of the abdomen. There is no guarding or rebound tenderness. Genitourinary exam was performed with female solar energy engineer. There is no current bleeding from the cervical os. There is no vaginal discharge. She does have diffuse tenderness over the uterus. Extremities reveal no edema. Skin exam normal. Neurologic exam normal. Test Results: White blood cell count is normal. Urinalysis reveals only 5-10 white blood cells. BMP and pelvic ultrasound are pending at this time. Emergency Department Course and Treatment: Patient was given morphine for pain control. At this point I feel she requires a repeat ultrasound. Patient will be signed out to the oncoming physician for further evaluation Treatment Plan: [] Disposition: Pending Impression: Pelvic pain, recent dilation and curettage for missed This note was generated with [employer] dictation software. It may contain incorrect words, spelling, and punctuation that were not noted in review of the chart prior to signing ED Disposition - Plan for ED Patient: Referrals: Care Physician,No Primary [Primary Care Provider] -
[2020-11-16 06:38] LABS: Anion Gap 5 (5-15); BUN 6 mg/dL (7-18); BUN/Creat Ratio 8.6 RATIO (10-20); Calcium,Total 9.2 mg/dL (8.5-10.1); Chloride 104 mmol/L (98-107); Creatinine, Serum 0.69 mg/dL (0.55-1.02); EST Glomerular Filtration Rate 109 mL/min (>60); Est Glom Filt Rate - Afr Amer 132 mL/min (>60); Glucose 97 mg/dL (74-106); Potassium 3.8 mmol/L (3.5-5.1); Sodium Level 138 mmol/L (136-145)
[2020-11-16 07:13] LABS: hCG Titer Quant., Serum 925 mIU/mL (1-3)
[2020-11-16 07:34] VITALS: BP 116/62; PULSE 70; RESP 17; TEMP 36.8; O2SAT 100
[2020-11-16 08:10] VITALS: RESP 17
[2020-11-16] MEDS: Ondansetron 4 MG/2 ML Vial IV (09:19)
[2020-11-16 09:26] VITALS: BP 110/65; PULSE 74; RESP 18; TEMP 36.8; O2SAT 94
--- NOTE | 2020-11-16 11:31 | ED.DCSUM_ITS ---
- ER Visit Summary Date of Service: 11/16/20 Chief Complaint: [] History of Present Illness: The patient is a 25 F [] Physical Examination: [] Test Results: [] Emergency Department Course and Treatment: [] Treatment Plan: [] Disposition: [] Impression: [] This note was generated with [employer] dictation software. It may contain incorrect words, spelling, and punctuation that were not noted in review of the chart prior to signing ED Disposition - Plan for ED Patient: Disposition: Home or Assisted Living Instructions: ED Pelvic Pain, Unknown Cause Referrals: Care Physician,No Primary [Primary Care Provider] -
[2020-11-16 11:49] VITALS: BP 129/69; PULSE 71; RESP 18; O2SAT 97
== END 2020-11-16 11:50 | disposition home or self-care (01) ==
PROVIDERS: Emergency Provider Emergency Medicine
DX: R10.2 Pelvic and perineal pain (principal); N93.9 Abnormal uterine and vaginal bleeding, unspecified
CPT/HCPCS: 76856; 80048; 81001; 84702; 85025; 96374; 96375; 96376; 99282; A4216; J2405

== ENCOUNTER 2020-12-06 20:19 | Emergency (ER) | payer MEDICAID, SELFPAY ==
[2020-12-06 20:20] VITALS: BP 118/74; PULSE 94; RESP 15; TEMP 36.6; O2SAT 98; BMI 34.4
--- NOTE | 2020-12-06 20:41 | RAD_ITS ---
STUDY: X-RAY - RIGHT HAND REASON FOR EXAM: Female, 25 years old. Injury/Pain TECHNIQUE: 3 view(s) of the hand. COMPARISON: None. FINDINGS: Normal radiocarpal articulation. There is a negative ulnar variant of the distal radioulnar articulation. Normal visualized carpal bones. Normal carpal articulations Normal carpometacarpal articulation of the thumb. Normal second through fifth carpometacarpal joints. Normal metacarpi. Normal metacarpophalangeal joint of the thumb. Normal interphalangeal joint of the thumb. Normal proximal and distal phalanges of the thumb. Normal metacarpophalangeal joints of the second through fifth fingers. Normal proximal and distal interphalangeal joints of the second through fifth fingers. Normal phalanges of the second through fifth fingers. The soft tissue structures are unremarkable. RAD/Hand Min 3 Views IMPRESSION: Negative for fracture or dislocation. Electronically Signed: Nisa Pearce MD at 20:57 EDT , Service support ,
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
[2020-12-06] MEDS: Amox/Clavulanate 875 MG Tablet PO (21:04)
[2020-12-06] MEDS: Ibuprofen 600 MG Tablet PO (21:04)
[2020-12-06] MEDS: Diphth,Pertuss(Acell),Tet Vac 0.5 ML Vial IM (21:05)
[2020-12-06 21:30] VITALS: RESP 18
== END 2020-12-06 21:43 | disposition home or self-care (01) ==
PROVIDERS: Emergency Provider Emergency Medicine
DX: S61.451A Open bite of right hand, initial encounter (principal); Y04.1XXA Assault by human bite, initial encounter; Z23 Encounter for immunization
CPT/HCPCS: 73130; 90715; 99282

== ENCOUNTER 2023-05-20 15:59 | Emergency (ER) | payer MEDICAID, SELFPAY ==
[2023-05-20 16:00] VITALS: BP 121/67; PULSE 98; RESP 14; TEMP 36.6; O2SAT 99; BMI 33.6
--- NOTE | 2023-05-20 16:17 | US_ITS ---
STUDY: FIRST TRIMESTER OBSTETRICAL ULTRASOUND REASON FOR EXAM: Female, 27 years old bleeding LMP: 03/12/2023 TECHNIQUE: Transvaginal TECHNICAL QUALITY: Adequate. PRIOR ULTRASOUND: None. FINDINGS: There is visualization of a single gestational sac in a normal intrauterine position. The mean sac diameter (MSD) measures 4.63 cm, indicating an estimated gestational age (EGA) of 10 weeks, 1 days. The gestational sac shape is within normal limits. There is a visualized yolk sac. The yolk sac measures 0.66 cm. The placenta is non-visualized. The placenta covers the lower uterine segment consistent with complete previa at the internal os. There is visualization of a live embryo. The crown-rump length (CRL) measures 4.51 cm, indicating an estimated gestational age (EGA) of 11 weeks, 1 days. There is demonstrated cardiac activity with a heart rate of 174 bpm. The estimated gestation age (EGA) by LMP is 8 weeks, 3 days. The estimated date of delivery (TRISTON) by LMP is 12/27/2023. The estimated gestation age (EGA) by US is 10 weeks, 5 days. The estimated date of delivery (TRISTON) by US is 12/11/2023. The uterus measures 10.6 x 10.2 x 7.3. There is no demonstrated uterine fibroid. The cervix is closed. The right ovary measures 3.4 x 2.4 x 2.3. Hypoechoic cyst in the right ovary measures 1.8 x 1.6 x 1.5 cm. There is no visualized right adnexal mass or complex lesion. Left ovary is not visualized on examination.. There is no fluid in the cul de sac. US/Transvaginal w/Preg US IMPRESSION: 1. Live intrauterine with estimated gestational age by ultrasound of 10 weeks 5 days by crown-rump length with TRISTON of 12/11/2023. 2. Findings consistent with complete previa, recommend follow-up imaging to document developing resolution and gynecologic consultation. Electronically Signed: Omega Adorno DO at 17:56 EDT ,
--- NOTE | 2023-05-20 16:18 | ED.VIS.FEGU ---
HPI HPI - Female History of Present Illness Chief Complaint: Vag Bld, Preg Informant: patient and spouse/S.O. Narrative Narrative: 27-year-old female who reports being G6, P2 AB 3 presenting at unknown gestation with a chief complaint of pelvic cramping and spotting. Patient states she found out she was while taking oral contraceptives 2 to 3 months ago. States that she had an appointment with DITCHING MACHINE OPERATING ENGINEER who closed the practice abruptly and she has an appointment next week with [facility] DITCHING MACHINE OPERATING ENGINEER. She states that she has been very nauseated and has been drinking when she can. She states that she had breast tenderness but that has gone away. She states for 2 weeks she has had some pelvic cramping in the past week seems to have become more. She states it feels different than normal. Today she has noted some bright red blood on tissue paper after urination. She is not having to wear a pad. She has required D&C in the past. PFSH PFSH Home Medications amoxicillin 875 mg-potassium clavulanate 125 mg tablet 875 mg (0.875 x 875-125 mg) PO Q12H #20 TABLETS 12/06/20 [Rx Last Taken Unknown] norgestimate 0.25 mg-ethinyl estradiol 35 mcg tablet 1 tablet PO DAILY 12/06/20 [History Last Taken Unknown] Allergy/AdvReac Type Severity Reaction Status Date / Time No Known Allergies Allergy Verified 05/20/23 16:02 Social History Smoking Status: Current every day smoker tobacco type: e-cigarettes ROS ROS ED Constitutional Constitutional ED: Denies chills, fever(s) or weight loss Eyes Eyes: Denies change in vision or diplopia ENT ENT ED: Denies ear pain, rhinorrhea or sore throat Cardiovascular Cardiovascular: Denies chest pain, orthopnea, palpitations or racing heartbeat Respiratory/Chest Respiratory/Chest: Denies cough, dyspnea or orthopnea Gastrointestinal Gastrointestinal: Reports nausea; Denies abdominal pain, diarrhea or vomiting Genitourinary Genitourinary ED: Reports other Details: Pelvic cramping ; Denies dysuria, hematuria or urinary frequency Musculoskeletal Musculoskeletal: Denies arthralgias or myalgias Integumentary Denies abscess or rash Neurologic Neurologic: Denies headache(s) or weakness Psychiatric Psychiatric: Denies anxiety, depression, suicidal ideation or suicidal thoughts Endocrine Endocrinology: Denies polydipsia, polyphagia or polyuria Allergic/Immunologic Allergic/Immunologic ED: Denies mouth swelling, tongue swelling or urticaria EXAM Physical Exam Const Vital Signs: 05/20/23 16:00 Temperature 97.9 F Temperature Source Temporal Pulse Rate 98 Respiratory Rate 14 Blood Pressure 121/67 H Blood Pressure Mean 85 Pulse Ox 99 Oxygen Delivery Method Room Air Positive well nourished and well developed General Appearance ED: well developed HEENT Reports normocephalic, head/scalp atraumatic and moist mucous membranes Eyes PERRL and EOMs intact bilaterally Neck no lymphadenopathy, supple and no JVD Resp normal respiratory effort and clear to auscultation bilaterally Cardio regular rate, regular rhythm and no murmurs GI normal to inspection, nondistended, normoactive bowel sounds and non-tender Palpation: soft Back/Spine no CVA tenderness and normal ROM Extremity normal to inspection General Extremety ED: Negative for edema General Extremity: Negative for edema Neuro oriented x3 and CN's II-XII intact bilaterally Sensorium / Orientation: alert Motor Exam: strength 5/5 throughout Psych mental status grossly normal Mood & Affect: Negative for depressed or tearful Skin no rashes or lesions noted and no wounds MDM MDM MDM Narrative Medical decision making narrative: Patient is O+ hemoglobin 11.3 white count of 4.5 and a platelet count of 190. Quantitative hCG 36,481. Pelvic ultrasound demonstrates a single live intrauterine measuring approximately 10 weeks 3 days. Is noted to have a complete previa. Case was discussed with DITCHING MACHINE OPERATING ENGINEER on-call for [facility] Dr. Moran. Pelvic rest and light activity/lifting discussed with patient. 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 She is able to sit when she needs. Patient has no further questions at the exit interview. Return if worsening or concerns Lab Data Attestation: I reviewed the patient's lab results. Labs: Laboratory Results - last 24 hr 05/20/23 16:34 WBC 4.5 RBC 4.29 Hgb 11.3 L Hct 34.4 L MCV 80.2 L MCH 26.3 L MCHC 32.8 RDW Std Deviation 39.4 RDW Coeff of Joaquina 13.6 Plt Count 190 MPV 10.3 Immature Gran % (Auto) 0.700 Neut % (Auto) 72.5 H Lymph % (Auto) 17.7 L [place] % (Auto) 8.9 Eos % (Auto) 0.0 Baso % (Auto) 0.2 Absolute Neuts (auto) 3.2 Absolute Lymphs (auto) 0.79 L Nucleated RBC % 0 HCG, Quant 24659 H Blood Type O POSITIVE Radiography Diagnostic Testing: Clinical Impression(s) from Imaging Studies Obstetrics Ultrasound 05/20/23 16:17 IMPRESSION: 1. Live intrauterine with estimated gestational age by ultrasound of 10 weeks 5 days by crown-rump length with TRISTON of 12/11/2023. 2. Findings consistent with complete previa, recommend follow-up imaging to document developing resolution and gynecologic consultation. Electronically Signed: Omega Adorno DO at 17:56 EDT , Discharge Plan Triage Chief Complaint: Vag Bld, Preg ED Provider: Royce Fonseca Dx/Rx/DC Orders Clinical Impression: First trimester , Vaginal bleeding in patient at less than 20 weeks gestation, Placenta previa Instructions: Placenta Previa, Bleeding During Early Prescriptions: No Action norgestimate-ethinyl estradiol 1 EACH tablet 1 tablet PO DAILY Patient Comments: take 1 tablet by mouth once daily amoxicillin-pot clavulanate 875 MG tablet 875 mg PO Q12H Qty: 20 0RF Primary Care Provider: Care Physician,No Primary Referrals: Care Physician,No Primary [Primary Care Provider] - Disposition Disposition: Home, Self Care
[2023-05-20 16:49] LABS: Absolute Lymphocyte Count 0.79 X10^3/uL (0.83-4.51); Absolute Neutrophil Count 3.2 X10^3/uL (2.0-7.7); Basophil# 0.01 X10^3/uL; Basophil% 0.2 % (0-1); Hematocrit 34.4 % (37-47); Hemoglobin 11.3 g/dL (12.0-15.0); Lymphocyte # 0.79 X10^3/ul (0.83-4.51); Lymphocyte % 17.7 % (19-41); Mean Corp Hgb Conc 32.8 g/dL (32-36); Mean Corpuscular Hgb 26.3 pg (27.0-32.0); Mean Corpuscular Volume 80.2 fL (81-99); Mean Platelet Vol. 10.3 fl (6.2-12.0); Monocyte% 8.9 % (0-10); NRBC Flagged by Analyzer 0 % (0-5); Neutrophil # 3.24 X10^3/uL (2.7-7.7); Neutrophil % 72.5 % (47-70); Platelet Count 190 K/mm3 (150-450); RBC Distribution Width CV 13.6 % (11.6-14.6); RBC Distribution Width SD 39.4 fl (35.1-43.9); Red Blood Count 4.29 M/mm3 (4.2-5.4); White Blood Count 4.5 K/mm3 (4.4-11.0)
== END 2023-05-20 18:25 | disposition home or self-care (01) ==
PROVIDERS: Emergency Provider Emergency Medicine; Visit Provider Emergency Medicine
DX: O20.9 Hemorrhage in early pregnancy, unspecified (principal); F17.210 Nicotine dependence, cigarettes, uncomplicated; Z3A.10 10 weeks gestation of pregnancy; O44.11 Complete placenta previa with hemorrhage, first trimester; O99.331 Smoking (tobacco) complicating pregnancy, first trimester; F17.290 Nicotine dependence, other tobacco product, uncomplicated
CPT/HCPCS: 76817; 84702; 85025; 86900; 86901; 99283; A4216

== ENCOUNTER 2023-09-29 10:08 | Emergency (ER) | payer MEDICAID, SELFPAY ==
[2023-09-29 10:08] VITALS: BP 107/78; PULSE 81; RESP 16; TEMP 35.7; O2SAT 98; BMI 36.8
--- NOTE | 2023-09-29 10:24 | EX.ED.VIS.EY ---
HPI History of Present Illness Chief Complaint: Eye Problem Informant: patient Onset/Context/Timing Location: Bilateral Eyes Onset: Yesterday Context: Gradual Onset Timing: Continuous Current Severity: Moderate Maximum Severity: Moderate Worsened by: light Associated Symptoms Associated Symptoms - Eyes: Burning, Crusting, Eyelid swelling, Photophobia and Redness History of injury: No Visual correction: Corrective contact lenses Narrative Narrative: 27-year-old presents saying that she has pinkeye it started in the left eye and now this morning is in the right eye, she also confirms that she has had cold for the past 2 weeks off-and-on. She states her main concern is that this is the third time she has had pinkeye during this . She does not have any abdominal symptoms or vaginal bleeding or dyspnea. She states she is having trouble seeing out of her eyes because it hurts to keep them open. 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 PFSH PFSH Home Medications vits,calcium no.78-iron fumarate-folic acid 29 mg-1 mg tablet (Prenatabs FA) 1 tab PO DAILY 09/29/23 [History Last Taken Unknown] Allergy/AdvReac Type Severity Reaction Status Date / Time No Known Allergies Allergy Verified 09/29/23 10:08 Social History Smoking Status: Current every day smoker tobacco type: e-cigarettes ROS ROS ED Constitutional Constitutional ED: Denies chills or fever(s) Eyes Eyes: Reports as per HPI and eye pain ENT ENT ED: Reports nasal congestion and rhinorrhea; Denies ear pain or sore throat Respiratory/Chest Respiratory/Chest: Reports cough Neurologic Neurologic: Denies headache(s), paresthesias or weakness EXAM Physical Exam Const Vital Signs: 09/29/23 10:08 Temperature 96.2 F L Temperature Source Temporal Pulse Rate 81 Respiratory Rate 16 Blood Pressure 107/78 Blood Pressure Mean 87 Pulse Ox 98 Oxygen Delivery Method Room Air Positive well nourished and well developed General Appearance ED: well developed and NAD HEENT atraumatic; Negative for tenderness Mouth ED: Yes oral and palatal mucosa normal and Yes lips normal Mouth: oral and palatal mucosa normal and lips normal Eyes PERRL and EOMs intact bilaterally Eyes Narrative: Bilateral bulbar and palpebral conjunctival injection without chemosis, periorbital cellulitis, or active discharge. The left eye looks more prominent than the right. Neuro oriented x3, CN's II-XII intact bilaterally and gait normal Sensorium / Orientation: alert Skin Lesions: no lesions Rashes: no rashes MDM MDM MDM Narrative Medical decision making narrative: Visual acuities noted. This is very likely adenovirus infection causing her URI and her conjunctivitis. Will give her some antibiotic ointment only so that she has something safe to put in her eye for discomfort, in the meantime we placed tetracaine in her eye, resolved her discomfort, she was able to get her own contact out, and we will let her go home with appropriate discharge instructions and follow-up advised if it does not resolve. Discharge Plan Triage Chief Complaint: Eye Problem ED Provider: Nguyễn Subramanian Dx/Rx/DC Orders Clinical Impression: Acute viral conjunctivitis of both eyes, Adenovirus infection Instructions: ED Conjunctivitis, Viral Prescriptions: No Action Prenatabs FA 29-1 mg tablet 1 tab PO DAILY Patient Comments: take 1 tablet by mouth once daily Primary Care Provider: Care Physician,No Primary Referrals: Doctor,Your [Non-Staff] - 1 Week if not improving Activity Restrictions/Additional Instructions: You may use the eye ointment 3 times daily as needed for discomfort. It has antibiotic in it but do not expect it to resolve your pinkeye quickly since it is more likely to be viral in etiology. Disposition Disposition: Home, Self Care
[2023-09-29] MEDS: Erythromycin Base 1 OPTH.TUBE 1 APPLIC EACH EYE (10:35)
[2023-09-29] MEDS: Tetracaine 0.5% Ophthalmic Bottle 2 DRP EACH EYE (10:35)
--- NOTE | 2023-09-29 11:46 | ED.RN ---
Pt. came out to nurses station and asked what was taking so long. was told that his 's chart was up for MD Hinkle . then came out approx 10 minutes later and asked this RN specifically what was taking so long. This RN responded with, her chart is up for becky, we are just waiting on the Dr. to pop back in and see you . responded with my and child are just getting antsy and it is hot in the room . This RN responded with If you have to go and can't want for the discharge instructions, you are more than welcome to. I understand it can be hard trying to keep and toddler entertained but unfortunately I cannot know exactly when the Dr. will be back in . then responded Ok so just the antibiotics and the discharge then? , I then responded, I cant tell you exactly what the Dr. will prescribe for discharge because I do not have the paperwork, I wont know exactly what the paperwork will say until I have it . went back into room.
--- NOTE | 2023-09-29 11:49 | ED.RN ---
Patient's came out to desk and wanted to talk to who was in charge. I went back to the room with the patient and he stated that he felt that the nurse was rude to him. 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 He just didn't feel like the nurse was nice about it. Patient was apologized to. He asked about anyone higher up. I gave him the patient advocate number.
== END 2023-09-29 11:53 | disposition home or self-care (01) ==
PROVIDERS: Emergency Provider Emergency Medicine; Visit Provider Emergency Medicine
DX: B30.9 Viral conjunctivitis, unspecified (principal); B97.0 Adenovirus as the cause of diseases classified elsewhere; F17.290 Nicotine dependence, other tobacco product, uncomplicated; Z97.3 Presence of spectacles and contact lenses
CPT/HCPCS: 99283; A4216

== ENCOUNTER 2023-10-14 08:55 | Emergency (ER) | payer MEDICAID, SELFPAY ==
[2023-10-14 08:56] VITALS: BP 134/86; PULSE 124; RESP 18; TEMP 36.7; O2SAT 97; BMI 37.0
--- NOTE | 2023-10-14 09:10 | US_ITS ---
STUDY: ABDOMINAL ULTRASOUND - RIGHT UPPER QUADRANT REASON FOR VISIT: Female, 28 years old . Pelvic pain. TECHNIQUE: Ultrasound evaluation of the right upper quadrant was performed with real-time and static avalos-scale imaging. TECHNICAL QUALITY: Limited. Examination limited due to obesity. COMPARISON: None. FINDINGS: Liver: The liver measures 17.7 cm. There is increased echogenicity consistent with fatty infiltration. The bile ducts are within normal limits. There is hepatic color flow. The direction of portal flow is hepatopetal. There is no demonstrated mass lesion. Gallbladder: Normal distended gallbladder. The gallbladder wall measures 2.3 mm. There is a negative sonographic Todd''s sign. There is no pericholecystic fluid. There are no gallstones. Common Bile Duct (C.B.D.): The common bile duct measures 2.8 mm. Pancreas: There is nonvisualization of the pancreas due to overlying bowel gas. Right Kidney: Normal size of the right kidney. The right kidney measures 10.8 cm x 5.9 cm x 5 cm. Normal renal cortex. The right cortex measures 1.2 cm. There is no demonstrated renal mass or cyst. There is no right hydronephrosis. US/Gallbladder IMPRESSION: Fatty infiltration of the liver. Electronically Signed: Ramesh Taylor MD at 10:22 EST ,
--- NOTE | 2023-10-14 09:11 | EX.ED.DYSGE1 ---
HPI History of Present Illness Chief Complaint: Abd Pain Detail of Chief Complaint: Abdominal pain Informant: patient Onset/Context/Timing Current Severity: 03/17 Narrative Narrative: Patient presents to the emergency department with complaint of abdominal pain and vomiting that started yesterday. Patient states that she initially started with vomiting yesterday and now having intermittent sharp pains in her abdomen. Patient is 32 weeks and is G3, P2. She denies lower abdomen pain or vaginal bleeding. Patient denies dysuria or urgency or frequency. She states she has vomited about 7 times. She denies any diarrhea. Patient also complains of a broken tooth since yesterday with some discomfort as well. She describes feeling bloated and burping frequently. She has had no prior abdominal surgeries. [facility] Medical History (Updated 10/14/23 @ 10:[address] Louis Ponce DO) Home Medications vits,calcium no.78-iron fumarate-folic acid 29 mg-1 mg tablet (Prenatabs FA) 1 tab PO DAILY 09/29/23 [History Last Taken Unknown] amoxicillin 500 mg tablet 500 mg PO TID #30 tabs 10/14/23 [Rx Last Taken Unknown] hydrocodone-acetaminophen 5-325mg 5mg-325mg 1 tab PO Q4H PRN PRN Pain 2 days #10 TABLETS 10/14/23 [Rx Last Taken Unknown] Allergy/AdvReac Type Severity Reaction Status Date / Time No Known Allergies Allergy Verified 10/14/23 09:28 Social History Smoking Status: Current every day smoker tobacco type: e-cigarettes ROS ROS ED Review of Systems ROS Unobtainable: other Constitutional Constitutional ED: Reports lethargy; Denies chills, fever(s), sweats or weight loss Eyes Eyes: Denies blurry vision, change in vision or diplopia ENT ENT ED: Reports other Details: Dental pain ; Denies rhinorrhea or sore throat Cardiovascular Cardiovascular: Reports chest pain and racing heartbeat; Denies orthopnea Respiratory/Chest Respiratory/Chest: Denies cough, dyspnea, dyspnea on exertion, orthopnea or sputum Gastrointestinal Gastrointestinal: Reports abdominal pain, nausea and vomiting; Denies diarrhea Genitourinary Genitourinary ED: Denies dysuria, hematuria or urinary frequency Musculoskeletal Musculoskeletal: Denies arthralgias, back pain, myalgias or neck pain Integumentary Denies abscess, Abrasions or rash Neurologic Neurologic: Denies headache(s) or weakness Psychiatric Psychiatric: Denies anxiety, depression or suicidal thoughts Endocrine Endocrinology: Denies polydipsia, polyphagia or polyuria Hematologic/Lymphatic Hematologic/Lymphatic: Denies easy bleeding, easy bruising or lymphadenopathy Allergic/Immunologic Allergic/Immunologic ED: Denies mouth swelling, tongue swelling or urticaria EXAM Physical Exam Const Vital Signs: 10/14/23 08:56 Temperature 98.1 F Temperature Source Temporal Pulse Rate 124 H Respiratory Rate 18 Blood Pressure 134/86 H Blood Pressure Mean 102 Pulse Ox 97 Oxygen Delivery Method Room Air Positive well nourished and well developed General Appearance ED: well developed and NAD HEENT Reports TM's clear and moist mucous membranes HEENT Narrative: Dentition-patient has tenderness to palpation over left upper tooth #11 that is broken. No gingival erythema or abscess noted. normocephalic and atraumatic; Negative for trauma or tenderness Tympanic Membrane ED: Yes TM's clear Eyes PERRL and EOMs intact bilaterally General Eye ED: Negative for pale conjunctiva or scleral icterus Neck no lymphadenopathy, supple and no JVD General: Negative for tenderness Chest Wall inspection of chest normal and palpation of chest normal Chest: Negative for tenderness Resp normal respiratory effort and clear to auscultation bilaterally Effort and Inspection: Negative for respiratory distress or pain with movement Auscultation: Negative for rhonchi, wheezes or diminished lung sounds Cardio regular rate, regular rhythm, S1 normal heart sound, S2 normal heart sound and no murmurs Peripheral Pulses: pulses 2+ throughout GI normal to inspection, nondistended, normoactive bowel sounds, soft to palpation, non-distended and no masses GI Narrative: Gravid uterus with fundal height approximately 12 cm above umbilicus. Patient has tenderness diffusely over the right upper quadrant and epigastric region with some guarding. There is no rebound, rigidity, or pineal signs. No masses palpated. No significant tenderness over the uterus or right lower quadrant. No CVA tenderness on exam. No erythema or warmth noted to the abdomen. Back/Spine no CVA tenderness and no thoracic nor lumbar tenderness Extremity normal to inspection General Extremety ED: Negative for edema General Extremity: Negative for edema Neuro oriented x3, CN's II-XII intact bilaterally, no sensory deficits noted and gait normal Sensorium / Orientation: awake, alert, oriented to person, oriented to place and oriented to time Motor Exam: strength 5/5 throughout and strength abnormal Psych mental status grossly normal Skin no rashes or lesions noted and no wounds MDM MDM MDM Narrative Medical decision making narrative: Patient presents with abdominal pain and vomiting that started yesterday. Patient 32 weeks . In the differential would be viral gastroenteritis versus GERD versus acute cholecystitis or appendicitis or other acute intra-abdominal process. Clinically do not feel patient is in labor. Will obtain heart tones. Will obtain basic labs as well as gallbladder ultrasound to begin. May require OB evaluation once medical workup in the emergency department completed. I will treat patient with Zofran and 4 mg of morphine IV. Will give IV fluids. Patient heart tones in the 160s. CBC with differential showed a white count of 10.3 with hemoglobin 11.8 and platelet count of 221. Chemistries unremarkable. Total bilirubin was normal at 0.3 with an elevated alkaline phosphatase of 187 and normal AST and ALT. Urinalysis showed 500 leukocyte esterase and +1 bacteria with 5-10 WBCs. I did send off a urine culture. Gallbladder ultrasound performed was normal. Patient initially medicated with morphine and Zofran. Currently only complaining of some upper abdomen discomfort and mostly the pain in her teeth. I will discuss case with [employer] DEMONSTRATOR on-call so that they can monitor the baby and rule out contractions. Can write her a prescription for amoxicillin and a few [place] for pain. Lab Data Labs: Laboratory Results - last 24 hr 10/14/23 10/14/23 09:15 09:25 WBC 10.3 RBC 4.48 Hgb 11.8 L Hct 35.5 L MCV 79.2 L MCH 26.3 L MCHC 33.2 RDW Std Deviation 36.6 RDW Coeff of Joaquina 12.8 Plt Count 221 MPV 10.7 Immature Gran % (Auto) 0.500 Neut % (Auto) 73.0 H Lymph % (Auto) 16.4 L [place] % (Auto) 7.7 Eos % (Auto) 2.2 Baso % (Auto) 0.2 Absolute Neuts (auto) 7.5 Absolute Lymphs (auto) 1.68 Nucleated RBC % 0 Sodium 138 Potassium 4.0 Chloride 109 H Carbon Dioxide 22.0 Anion Gap 7 BUN 10 Creatinine 0.75 Estim Creat Clear Calc 140.81 Est GFR (MDRD) Af Amer 118 Est GFR (MDRD) Non-Af 98 BUN/Creatinine Ratio 13.3 Glucose 107 H Calcium 9.8 Total Bilirubin 0.30 AST 15 ALT 27 Alkaline Phosphatase 187 H Total Protein 7.8 Albumin 2.7 L Globulin 5.1 H Albumin/Globulin Ratio 0.5 L Lipase 21 Urine Color Yellow Urine Clarity Sl. Cloudy Urine pH 6.0 Ur Specific [place] 1.025 Urine Protein 30 H Urine Glucose (UA) Normal Urine Ketones 5 H Urine Occult Blood Negative Urine Nitrite Negative Urine Bilirubin 1 H Urine Urobilinogen Normal Ur Leukocyte Esterase 500 H Urine RBC 0 SEEN Urine WBC 5-10 SEEN Ur Squamous Epith Cells 0-5 SEEN Urine Bacteria 1+ Urine Mucus 0 SEEN Radiography Diagnostic Testing: Clinical Impression(s) from Imaging Studies Gallbladder Ultrasound 10/14/23 09:10 IMPRESSION: Fatty infiltration of the liver. Electronically Signed: Ramesh Taylor MD at 10:22 EST Reading Location ID and State: [facility] / [place] , Service support , Discharge Plan Triage Chief Complaint: Abd Pain ED Provider: Louis Ponce Dx/Rx/DC Orders Clinical Impression: Pain, dental, Abdominal pain, Vomiting Instructions: ED Abdominal Pain Unkn Cause Fem, ED Dental Pain Prescriptions: New hydrocodone-acetaminophen [hydrocodone-acetaminophen] 5-325 mg tablet 1 tab PO Q4H PRN PRN (Reason: Pain) 2 Days Qty: 10 0RF amoxicillin 500 mg tablet 500 mg PO TID Qty: 30 0RF No Action Prenatabs FA 29-1 mg tablet 1 tab PO DAILY Patient Comments: take 1 tablet by mouth once daily Primary Care Provider: Care Physician,No Primary Referrals: Jennifer Moran MD [Med Staff - Active Staff] - 3-5 Days Care Physician,No Primary [Primary Care Provider] - Activity Restrictions/Additional Instructions: See a dentist at earliest possible time. Disposition Disposition: Home, Self Care
[2023-10-14 09:23] LABS: Mucous, Urine 0 SEEN /hpf (<or=2+); Red Blood Cells-Urine 0 SEEN /hpf (0-5)
[2023-10-14] MEDS: Ondansetron 4 MG/2 ML Vial IV (09:31)
[2023-10-14] MEDS: 0.9% Normal Saline (1000mL) 1,000 ML 125 ML IV (09:31)
[2023-10-14] MEDS: Morphine 4 MG/ML Syringe IV (09:32)
[2023-10-14 09:33] LABS: Absolute Lymphocyte Count 1.68 X10^3/uL (0.83-4.51); Absolute Neutrophil Count 7.5 X10^3/uL (2.0-7.7); Basophil# 0.02 X10^3/uL; Basophil% 0.2 % (0-1); Eosinophil# 0.23 X10^3/uL; Eosinophils% 2.2 % (0-5); Hematocrit 35.5 % (37-47); Hemoglobin 11.8 g/dL (12.0-15.0); Lymphocyte # 1.68 X10^3/ul (0.83-4.51); Lymphocyte % 16.4 % (19-41); Mean Corp Hgb Conc 33.2 g/dL (32-36); Mean Corpuscular Hgb 26.3 pg (27.0-32.0); Mean Corpuscular Volume 79.2 fL (81-99); Mean Platelet Vol. 10.7 fl (6.2-12.0); Monocyte# 0.79 X10^3/uL; Monocyte% 7.7 % (0-10); NRBC Flagged by Analyzer 0 % (0-5); Neutrophil # 7.48 X10^3/uL (2.7-7.7); Platelet Count 221 K/mm3 (150-450); RBC Distribution Width CV 12.8 % (11.6-14.6); RBC Distribution Width SD 36.6 fl (35.1-43.9); Red Blood Count 4.48 M/mm3 (4.2-5.4); White Blood Count 10.3 K/mm3 (4.4-11.0)
[2023-10-14 09:33] LABS: Color, Urine Yellow (Yellow); Glucose, Dipstick Normal (Normal); Ketone-Dipstick 5 mg/dl (Negative); Leukocyte Esterase-Dipstick 500 /ul (Negative); Nitrite-Dipstick Negative (Negative); Occult Blood-Urine Negative /ul (Negative); Protein-Dipstick 30 mg/dl (Negative); Specific Gravity, Urine 1.025 (1.002-1.030); Urine Clarity Sl. Cloudy (Clear); Urine Urobilinogen Normal (Normal)
[2023-10-14 09:34] LABS: Urine Bilirubin Dipstick 1 mg/dL (Negative)
[2023-10-14 09:48] LABS: ALB/GLOB Ratio 0.5 RATIO (0.9-2.4); AST(SGOT) 15 U/L (15-37); Alanine Aminotransfer ALT/SGPT 27 U/L (13-56); Albumin, Serum 2.7 g/dL (3.2-5.0); Alkaline Phosphatase 187 U/L (45-117); Anion Gap 7 (5-15); BUN 10 mg/dL (7-18); BUN/Creat Ratio 13.3 RATIO (10-20); Calcium,Total 9.8 mg/dL (8.5-10.1); Chloride 109 mmol/L (98-107); Creatinine, Serum 0.75 mg/dL (0.55-1.02); EST Glomerular Filtration Rate 98 mL/min (>60); Est Glom Filt Rate - Afr Amer 118 mL/min (>60); Estimated Creatinine Clearance 140.81 ml/min; Globulin 5.1 g/dL (2.2-4.2); Glucose 107 mg/dL (74-106); Lipase 21 U/L (13-75); Protein, Total 7.8 g/dL (6.4-8.2); Sodium Level 138 mmol/L (136-145)
[2023-10-14 09:49] LABS: Squamous Epithelial Cells - UA 0-5 SEEN /hpf (5-10); White Blood Cells 5-10 SEEN /hpf (0-5)
[2023-10-14 09:54] LABS: Bacteria 1+ /hpf (None Seen)
[2023-10-14 11:55] VITALS: BP 119/74; PULSE 101; RESP 16; O2SAT 99
--- NOTE | 2023-10-14 11:57 | ED.RN ---
PT TO GO TO OB UPON DISCHARGE FOR MONITORING PER DR. LIM. THIS RN CALLED REPORT TO OB CHARGE NURSE AND GAVE REPORT. PT WITH IV INTACT AND NS RUNNING ON D/C TO OB. PT ASSISTED TO OB BY ED STAFF VIA WHEELCHAIR.
--- NOTE | 2023-10-14 12:21 | ED.RN ---
AFTER DISCHARGE PT RINGS CALL LIGHT. THIS RN PAGED TO ROOM. PT REPORTS TO THIS RN THAT SHE DOES NOT WANT TO GO DOWN TO OB. SHE STATES, I AM TIRED, AND I HAVE NOT SLEPT. I DO NOT WANT TO SPEND ANOTHER TWO HOURS DOWN THERE. I JUST WANT TO GO HOME. THIS RN FEDUCSTES PATIENT THAT [facility] OB NUCLEAR MONITORING TECHNICIAN DR. YORK RECOMMENDED THAT SHE STILL BE EVALAUTED DOWNTIARS TO HAVE BABY CHECKED.
--- NOTE | 2023-10-14 12:24 | ED.RN ---
AFTER DISCHARGE PT RINGS CALL LIGHT, THIS RN PAGED TO ROOM. PT REPORTS TO THIS RN THAT SHE DOES NOT WANT TO GO DOWN TO OB. PT STATES,' I AM TIRED, AND I HAVE NOT SLEPT, I JUST WANT TO GO HOME AND LAY DOWN. IF I NEED ANYTHING I WILL CALL MY OB. THIS RN EDUCATES PATIENT THAT OUR ED PHYSICIAN HAS ALREADY SPOKEN TO DR. YORK TELLER COORDINATOR FOR [facility], AND HER RECOMMENDATION WAS TO HAVE THE PATIENT SEEN IN OB. PT STATES, I UNDERSTAND BUT I DON'T WANT TO GO DOWN THERE. I JUST WANT TO GO HOME. PT EDUCATED THAT IF SOMETHING CHANGES AND PT HAS CONCERN FOR HERSELF OR HER BABY TO RETURN TO OB FOR EVALUATION. PT IV D/C BY THIS RN AND COVERED WITH 2X2 GAUZE AND PAPER TAPE. PT DRESSES SELF AND AMBULATES OUT OF DEPT WITH . THIS RN NOTIFIED OB CHARGE NURSE. CHARGE NURSE SRINIVASAN REPORTS THAT SHE WILL NOTIFY [facility] OB THAT PT LEFT WITHOUT BEING EVALUATED IN THEIR DEPARTMENT.
== END 2023-10-14 12:27 | disposition home or self-care (01) ==
PROVIDERS: Emergency Provider Emergency Medicine; Visit Provider Emergency Medicine
DX: O26.893 Other specified pregnancy related conditions, third trimester (principal); O99.333 Smoking (tobacco) complicating pregnancy, third trimester; R10.9 Unspecified abdominal pain; R11.10 Vomiting, unspecified; O99.613 Diseases of the digestive system complicating pregnancy, third trimester; Z3A.32 32 weeks gestation of pregnancy; K08.89 Other specified disorders of teeth and supporting structures; F17.290 Nicotine dependence, other tobacco product, uncomplicated
CPT/HCPCS: 76705; 80053; 81001; 83690; 85025; 87086; 99282; J7030; J2405

== ENCOUNTER 2023-12-01 00:25 | Inpatient (IN) | payer MEDICAID, SELFPAY ==
[2023-11-30 22:57] VITALS: BMI 39.2
[2023-11-30 23:05] VITALS: PULSE 94; O2SAT 98
[2023-11-30 23:09] VITALS: RESP 16; TEMP 36.4
[2023-11-30 23:10] VITALS: PULSE 97; O2SAT 97
[2023-11-30 23:14] VITALS: BP 128/85; PULSE 100
[2023-12-01] VITALS (19 sets, daily range): BP systolic 98–124; BP diastolic 56–90; PULSE 56–86; RESP 12–18; TEMP 36–36.9; O2SAT 95–100
--- NOTE | 2023-12-01 | FALS_PTH ---
PATIENT: TORSTEN BURTON LOC: WP U#:[id number] AGE/SX: 28/F ROOM: WP007 RE12/01/[address]: Roxi Davis CNM : 1995 BED: 1 DIS: 12/02/2023 SPEC #: [id number] RECD: 12/01/23 03:10 STATUS: ASHLEY RERory #: [id number] OLIVA: 12/01/23 00:[address]: Roxi Davis DEPT: SURGICAL PATHOLOGY RECD BY: William Hicks ENTERED: 12/01/23 08:56 SP TYPE: FALL TUBES OTHR DR: No Primary Care Phys Tissues: Fallopian tube Procedures: Surgery Specimen Level II HEADER OPERATION: Tubal Ligation PRE-OP DIAGNOSIS: Sterilization TISSUE SUBMITTED: Fallopian tube, Right tube with a stitch, left tube no suture MICROSCOPIC DIAGNOSIS Right fallopian tube, salpingectomy: Complete cross sections of fallopian tube with no pathologic change. Left fallopian tube, salpingectomy: Complete cross sections of fallopian tube with no pathologic change. Benign paratubal cyst. Serous cystadenoma of ovarian origin. See comment. AM: 12/02/2023 COMMENT The larger cyst is of ovarian origin and consistent with serous cystadenoma. Case has been reviewed in consultation with Dr. Bolanos who concurs with the above diagnosis. IDC:JOHN MICROSCOPIC DESCRIPTION Slides are reviewed. GROSS DESCRIPTION Received in fixative is one container labeled with the patient's name and designated bilateral fallopian tubes. The specimen consists of bilateral fallopian tubes including fimbrial ends. Right fallopian tube measures 7.5 cm in length and up to 1.0 cm in diameter. The left fallopian tube measures 7.0cm in length and up to 1.0cm in diameter. Left fallopian tube shows two paratubal cysts measuring 0.5 and 1.4cm in greatest dimension respectively Ui Application Developer sections are submitted in three cassettes with each cassette containing one fallopian tube. 1- right fallopian tube, 2- left fallopian tube and smaller paratubal cyst, 3- larger left paratubal cyst / SJ:mr 12/01/23 TC:1 CPT: 24036,68511
[2023-12-01] MEDS: Lactated Ringers 1,000 ML 150 ML IV (00:30)
--- NOTE | 2023-12-01 00:35 | PCM.HP.OB ---
HPI - General General Date of Admission: 12/01/23 HPI Narrative TORSTEN BURTON, is a 28 F who presents [facility]ON: 12/06/23 at 40w0d with contractions. States contractions started around 7pm this evening and increased pain and frequency. Maternal Data Information [facility] Calculator Estimated Delivery Date Method Current WG Current Estimate 12/01/23 Manual 40w 0d PFSH PFSH Medical History (Updated 12/01/23 @ 00:42 by Roxi Davis CNM) Home Medications vits,calcium no.78-iron fumarate-folic acid 29 mg-1 mg tablet (Prenatabs FA) 1 tab PO DAILY 09/29/23 [History Last Taken Unknown] amoxicillin 500 mg tablet 500 mg PO TID #30 tabs 10/14/23 [Rx Last Taken Unknown] hydrocodone-acetaminophen 5-325mg 5mg-325mg 1 tab PO Q4H PRN PRN Pain 2 days #10 TABLETS 10/14/23 [Rx Last Taken Unknown] Allergy/AdvReac Type Severity Reaction Status Date / Time No Known Allergies Allergy Verified 10/14/23 09:28 Social History Smoking Status: Current every day smoker tobacco type: e-cigarettes History Elective abortions Hx Para 0 Spontaneous abortions Hx # Term Pregnancies Ectopic pregnancies Hx # Pregnancies Multiple births # of living children NST FHR Rate Baby A Baseline: 130 Variability:: Moderate Accelerations:: 15 x 15 Decelerations:: None FHR Category:: Category I Uterine Activity:: every 2-4 minutes moderate ROS Constitutional Constitutional: Reports systems reviewed and no addt'l complaints, except as documented; Denies headache(s) Eyes Eyes: Denies acute decrease in peripheral vision, blurry vision or change in vision ENT HEENT: Reports systems reviewed and no addt'l complaints, except as documented Cardiovascular Cardiovascular: Denies chest pain or dizziness Respiratory/Chest Respiratory/Chest: Denies cough, dyspnea, dyspnea on exertion, shortness of breath at rest or shortness of breath with exertion Gastrointestinal Gastrointestinal: Denies diarrhea, nausea or vomiting Genitourinary Genitourinary: Denies abdominal discomfort Musculoskeletal Musculoskeletal: Denies limited range of motion Integumentary Integumentary: Reports systems reviewed and no addt'l complaints, except as documented Neurologic Neurologic: Reports systems reviewed and no addt'l complaints, except as documented Psychiatric Psychiatric: Reports systems reviewed and no addt'l complaints, except as documented Endocrine Endocrinology: Reports systems reviewed and no addt'l complaints, except as documented Hematologic/Lymphatic Hematologic/Lymphatic: Reports systems reviewed and no addt'l complaints, except as documented Allergic/Immunologic Allergic/Immunologic: Reports systems reviewed and no addt'l complaints, except as documented Vital Signs Vital Signs Vital Signs: 11/30/23 23:05 11/30/23 23:05 11/30/23 23:10 Temperature Temperature Source Pulse Rate 94 97 Respiratory Rate Blood Pressure BP Systolic BP Diastolic Pulse Ox 98 11/30/23 23:10 11/30/23 23:14 11/30/23 23:14 Temperature Temperature Source Pulse Rate 100 Respiratory Rate Blood Pressure 128/85 H BP Systolic 128 BP Diastolic 85 Pulse Ox 97 11/30/23 23:09 11/30/23 23:09 11/30/23 23:09 Temperature 97.6 F L Temperature Source Oral Pulse Rate Respiratory Rate 16 Blood Pressure BP Systolic BP Diastolic Pulse Ox Weight Weight: 250 lb 12.8 oz Body Mass Index (BMI) 39.2 Physical Exam Const alert and oriented x3 General Appearance: cooperative Orientation / Consciousness: awake, oriented to person, oriented to place and oriented to time Exam Limitations: no limitations HEENT normocephalic Head and Scalp: normal to inspection, normocephalic and atraumatic Face and Sinus: normal facial exam Eyes General Eye: normal appearance of both eyes Neck full ROM Chest Chest: symmetrical chest wall rise Resp normal respiratory effort and normal air movement Auscultation: clear to auscultation bilaterally Cardio regular rate, regular rhythm, S1 normal heart sound, S2 normal heart sound, no murmurs, no rub, no gallops and no clicks GI normal to inspection, nondistended, normoactive bowel sounds and non-tender appearance of the vagina normal Narrative: Limited bedside US reveals breech presentation Bladder / Kidney Exam: no CVA tenderness Manual OB Exam: estimated gestational size appropriate, presentation breech, dilated 4cm, effaced 70 and station -3 Back/Spine normal ROM Extremity normal to inspection and full ROM Skin no rashes or lesions noted Neuro oriented x3 and moves all extremities Sensorium / Orientation: awake, alert and oriented to person Motor Exam: clonus absent Deep Tendon Reflexes: Rt Patellar (L4): 2+ and Lt Patellar (L4): 2+ Labs Labs Labs: Blood Type O POSITIVE Antibody Screen NEGATIVE Hct 35.5 % (37-47) L Hgb 11.8 g/dL (12.0-15.0) L Obstetrics Ultrasound VZV IgG Antibody 903 index (Immune >165) Rubella IgG Antibody 121.8 IU/mL Hep Bs Antigen Negative (Negative) Glucose 1 Hr 50 gm 143 mg/dL (70-140) H Gest Glucose Tolerance MG/DL Group B Strep DNA Negative (Negative) Rhogam given: No Assessment & Plan (1) 40 weeks gestation of : (2) Breech presentation: (3) Active labor at term: (4) Obesity affecting : (5) Short interval between pregnancies complicating , antepartum: (6) Positive GBS test: (7) History of prior with IUGR : PLAN: Plan 1) Admit to labor and delivery 2) Bedside US confirms breech presentation. 3) 2grams Ancef, 113kg 4) GBS positive, membranes intact 5) collaborative physician and notified of above assessment and plan. called to labor and delivery for primary LTCS.
[2023-12-01 00:48] LABS: Absolute Lymphocyte Count 2.39 X10^3/uL (0.83-4.51); Absolute Neutrophil Count 5.1 X10^3/uL (2.0-7.7); Basophil# 0.02 X10^3/uL; Basophil% 0.2 % (0-1); Eosinophil# 0.08 X10^3/uL; Hematocrit 31.1 % (37-47); Hemoglobin 10.1 g/dL (12.0-15.0); Lymphocyte # 2.39 X10^3/ul (0.83-4.51); Lymphocyte % 28.7 % (19-41); Mean Corp Hgb Conc 32.5 g/dL (32-36); Mean Corpuscular Hgb 24.8 pg (27.0-32.0); Mean Corpuscular Volume 76.2 fL (81-99); Mean Platelet Vol. 11.7 fl (6.2-12.0); Monocyte% 8.4 % (0-10); NRBC Flagged by Analyzer 0 % (0-5); Neutrophil # 5.11 X10^3/uL (2.7-7.7); Neutrophil % 61.2 % (47-70); Platelet Count 184 K/mm3 (150-450); RBC Distribution Width CV 13.2 % (11.6-14.6); RBC Distribution Width SD 35.8 fl (35.1-43.9); Red Blood Count 4.08 M/mm3 (4.2-5.4); White Blood Count 8.3 K/mm3 (4.4-11.0)
[2023-12-01] MEDS: Sodium Citrate/Citric Acid 30 ML UDC PO (00:55)
--- NOTE | 2023-12-01 01:00 | OP.PCM_ITS ---
Assessment & Plan (1) Breech presentation: (2) 39 weeks gestation of : (3) Obesity affecting : (4) Active labor at term: Maternal Data Information TRISTON Calculator Estimated Delivery Date Method Current WG Current Estimate 12/01/23 Manual 40w 0d Final TRISTON: 12/06/23 Gestational age: 39 2/7 Details Operative Information Date of Procedure: 12/01/23 Pre-Operative Diagnosis: breech fetus, active labor at term Post-Operative Diagnosis: same Indications Narrative: breech Classification: ALICE Procedure Type: low transverse (with bilateral salpingectomy) general intern #1: Jessica Bernal Type of Anesthesia: Spinal Anesthesiologist: Stone Albarran Special Medications: durmorph Antibiotic Given: Ancef 2 grams IV x1 Drain: Martinez to straight drain Estimated Blood Loss: 800 Fluids Replaced: 1100 Procedure Start Time: : Procedure Stop Time: :59 Time of Delivery: :30 Findings Description of Procedure: The patient was taken to the operating room. She was prepped and draped in the dorsal supine position with a leftward tilt. A Pfannenstiel skin incision was made approximately 2 cm above the symphysis pubis and carried through to underlying layer fascia with the scalpel. The fascia was incised incised in the midline and extended laterally with the Chaudhari scissors. The fascia was dissected off the rectus muscles with blunt and sharp dissection. The rectus muscles were in the midline and the peritoneum was entered bluntly. The peritoneal incision was stretched and the bladder blade was placed. The uterine incision was made in a low transverse fashion with the scalpel and extended superiorly and inferiorly with blunt dissection. The amniotic membranes were ruptured bluntly and clear amniotic fluid returned. The 's feet were brought out through the incision in the thighs and the was turned to back up a towel was placed around the trunk. The arms were swept out individually the head was then delivered in a flexed position with gentle fundal traction in the usual fashion and gentle downward traction on the maxilla. The mouth and nares were bulb suctioned. The cord was clamped and cut as the was stimulated. Cord clamping was delayed. The infant was handed off to the waiting nursing staff. The placenta was delivered with fundal massage and gentle traction in the standard fashion. The uterus was exteriorized and cleared of all clots and debris. The uterine incision was closed with #1 Vicryl in a running locked fashion. The incision was examined and was found to be hemostatic. The uterus was placed back into the peritoneal cavity and hemostasis was again confirmed. The left fallopian tube was identified and followed out to the fimbriated end. The antimesenteric portion was clamped, sealed and transected with the LigaSure device. It was followed to the cornual insertion of the tube which was clamped, transected after sealing with the LigaSure device. The pedicles were hemostatic. The same procedure was performed on the right side and excellent hemostasis was noted. Some hemoblast was placed over the uterine incision. The rectus muscles were examined and any bleeding was Bovie cauterized. The parietal peritoneum and rectus muscles were closed en bloc with an 0 Vicryl running suture. Some hemoblast was placed over the rectus muscles. The rectus fascia was examined and any bleeding was Bovie cauterized and the rectus fascia was closed with #1 PDS suture in a running standard fashion. The subcutaneous tissue was examining and any bleeding was Bovie cauterized. The subcutaneous tissue was reapproximated with 3-0 Vicryl suture. Some hemoblast was placed over the subcutaneous tissue. The skin was closed in a subcuticular fashion by the AD OPERATIONS ASSOCIATE with me present in the labor and delivery suite. I performed the remainder of the procedure with assistance. All sponge, lap, and needle counts were correct. The patient was taken to her room for recovery in a stable condition. Presentation: Positive for Footling Breech Amniotic Membrane Rupture Type: Artificial Amniotic Fluid Description: Clear Placental Delivery Description: Expressed Placenta Disposition: [facility] Specimen(s) Sent to Pathology: Bilateral fallopian tubes Cord Vessel Description: 3 Vessels Cord Entanglement: Around neck x 1, loose Nuchal Cord Compression: Without compression Cord Gases: ABG and VBG A Gender: Male ([place]) (1 minute): 9 (5 minute): 9 Delayed Cord Clamping: Yes Complications Complications: none
[2023-12-01] MEDS: Cefazolin 2 GM in 0.9% Normal Saline (100mL Bag) 100 ML IV (01:01)
[2023-12-01 02:18] LABS: Syphilis Antibodies Non-reactive
[2023-12-01] MEDS: Oxytocin 15 Units/NS 250ml 15 UNITS/250 ML IV.SOLN 83 UNITS IV (02:20)
[2023-12-01] MEDS: Acetaminophen 500 MG Tablet 1000 MG PO ×4 (02:52→20:24)
[2023-12-01] MEDS: 0.9% Saline Lock 10 ML Syringe IV ×2 (03:00→22:55)
[2023-12-01] MEDS: Ketorolac 30 MG/ML Syringe IV ×4 (03:00→22:55)
[2023-12-01 03:07] LABS: Pathology Specimen OB SEE PATHOLOGY REPORT
[2023-12-01] MEDS: Lactated Ringers 1,000 ML 100 ML IV (05:24)
[2023-12-01] MEDS: LACTATED RINGERS 500 ML 999 ML IV (08:48)
[2023-12-01] MEDS: Senna/Docusate Sodium 1 Tablet PO (08:48)
--- NOTE | 2023-12-01 09:11 | NURSING ---
pt up ambulating in room gait steady
--- NOTE | 2023-12-01 10:14 | NURSING ---
pt up walking around in room- unable to keep the pulse ox on patient
[2023-12-01] MEDS: Enoxaparin 40 MG/0.4 ML Syringe SC (13:31)
[2023-12-02 00:01] VITALS: BP 104/74; PULSE 72; RESP 16; TEMP 36.6; O2SAT 98
[2023-12-02] MEDS: Acetaminophen 500 MG Tablet 1000 MG PO ×2 (02:42→08:18)
[2023-12-02] MEDS: oxyCODONE 5 MG Tablet PO ×2 (04:15→08:18)
[2023-12-02] MEDS: Ibuprofen 600 MG Tablet PO ×2 (05:06→10:33)
[2023-12-02 06:14] LABS: Hemoglobin 8.7 g/dL (12.0-15.0); Mean Corp Hgb Conc 32.2 g/dL (32-36); Mean Corpuscular Volume 77.6 fL (81-99); Mean Platelet Vol. 11.4 fl (6.2-12.0); Platelet Count 131 K/mm3 (150-450); RBC Distribution Width CV 13.3 % (11.6-14.6); RBC Distribution Width SD 37.3 fl (35.1-43.9); Red Blood Count 3.48 M/mm3 (4.2-5.4); White Blood Count 6.6 K/mm3 (4.4-11.0)
[2023-12-02 08:15] VITALS: BP 107/74; PULSE 75; RESP 20; TEMP 36.5; O2SAT 98
[2023-12-02] MEDS: Senna/Docusate Sodium 1 Tablet PO (08:17)
--- NOTE | 2023-12-02 08:36 | PCM.PN.OB ---
Subjective Subjective Doing well per patient and nursing staff. Ambulating and taking PO without difficulty. Voiding and passing flatus. Pain controlled. Bottle feeding. Denies headache, visual changes, chest pain, shortness of breath, leg pain or increased bleeding. Lochia normal. Objective Data Objective Data Vital Signs: Vital Signs Temp Pulse Resp BP Pulse Ox O2 Del Method 97.7 F L 75 20 H 107/74 98 Room Air 12/02/23 08:15 12/02/23 08:15 12/02/23 08:15 12/02/23 08:15 12/02/23 08:15 12/02/23 08:15 Oxygen Delivery Method Room Air Weight: 250 lb 12.8 oz Body Mass Index (BMI) 39.2 Intake & Output: Intake and Output for Last 24 Hours 11/30/23 12/01/23 12/02/23 23:59 23:59 23:59 Intake Total 3510 / 3510 Output Total 2250 / 2250 Balance 1260 / 1260 Lab / Micro Data 12/02/23 06:05 Labs: Laboratory Results - last 24 hr 12/02/23 06:05: WBC 6.6, RBC 3.48 L, Hgb 8.7 L, Hct 27.0 L, MCV 77.6 L, MCH 25.0 L, MCHC 32.2, RDW Std Deviation 37.3, RDW Coeff of Joaquina 13.3, Plt Count 131 L, MPV 11.4 ROS Constitutional Constitutional: Reports systems reviewed and no addt'l complaints, except as documented; Denies headache(s) Eyes Eyes: Denies acute decrease in peripheral vision, blurry vision or change in vision ENT HEENT: Reports systems reviewed and no addt'l complaints, except as documented Cardiovascular Cardiovascular: Denies chest pain or dizziness Respiratory/Chest Respiratory/Chest: Denies cough, dyspnea, dyspnea on exertion, shortness of breath at rest or shortness of breath with exertion Gastrointestinal Gastrointestinal: Denies abdominal pain, diarrhea, nausea or vomiting Genitourinary Genitourinary: Denies abdominal discomfort Musculoskeletal Musculoskeletal: Denies limited range of motion Integumentary Integumentary: Reports systems reviewed and no addt'l complaints, except as documented Neurologic Neurologic: Reports systems reviewed and no addt'l complaints, except as documented Psychiatric Psychiatric: Reports systems reviewed and no addt'l complaints, except as documented Endocrine Endocrinology: Reports systems reviewed and no addt'l complaints, except as documented Hematologic/Lymphatic Hematologic/Lymphatic: Reports systems reviewed and no addt'l complaints, except as documented Allergic/Immunologic Allergic/Immunologic: Reports systems reviewed and no addt'l complaints, except as documented Physical Exam Const alert and oriented x3 General Appearance: cooperative Orientation / Consciousness: awake, oriented to person, oriented to place and oriented to time Exam Limitations: no limitations HEENT normocephalic Head and Scalp: normal to inspection, normocephalic and atraumatic Face and Sinus: normal facial exam Eyes General Eye: normal appearance of both eyes Neck full ROM Chest Chest: symmetrical chest wall rise Resp normal respiratory effort and normal air movement Auscultation: clear to auscultation bilaterally Cardio regular rate, regular rhythm, S1 normal heart sound, S2 normal heart sound, no murmurs, no rub, no gallops and no clicks GI normal to inspection, nondistended, normoactive bowel sounds and non-tender GI Narrative: Incision dry and inctact appearance of the vagina normal Bladder / Kidney Exam: no CVA tenderness Back/Spine normal ROM Extremity normal to inspection and full ROM Skin no rashes or lesions noted Neuro oriented x3, CN's II-XII intact bilaterally and moves all extremities Sensorium / Orientation: awake, alert and oriented to person Motor Exam: clonus absent Deep Tendon Reflexes: Rt Patellar (L4): 2+ and Lt Patellar (L4): 2+ Assessment & Plan (1) Delivery by section: (2) Breech presentation: PLAN: Plan 1) Routine postoperative care 2) Pain management 3) Vitals stable 4) Hgb 8.7, asymptomatic. Iron supplement PO 5) D/C home today 6) Incision check in one week and 6 week PP visit
--- NOTE | 2023-12-02 08:43 | DS.PCM_ITS ---
Providers Date of Admission: 12/01/23 Date of Discharge: 12/02/23 Primary Care Physician: No Primary Care Phys Reason For Visit: PRIMARY C SECTION Diagnosis Discharge Diagnosis (1) Delivery by section: Status: Acute (2) Breech presentation: Status: Acute Code(s): O32.1XX0 - Maternal care for breech presentation, not applicable or unspecified Plan 1) Routine postoperative care 2) Pain management 3) Vitals stable 4) Hgb 8.7, asymptomatic. Iron supplement PO 5) D/C home today 6) Incision check in one week and 6 week PP visit Medications at Discharge Home Medications vits,calcium no.78-iron fumarate-folic acid 29 mg-1 mg tablet (Prenatabs FA) 1 tab PO DAILY 09/29/23 acetaminophen 500 mg tablet 1,000 mg (2 x 500 mg) PO Q6H #0 tabs 12/02/23 ferrous sulfate 325 mg (65 mg iron) tablet 325 mg PO BID 30 days #60 tabs 12/02/23 ibuprofen 600 mg tablet 600 mg PO Q6H #0 tabs 12/02/23 oxycodone 5 mg tablet 5 mg PO Q6H 7 days #10 tabs 12/02/23 Hospital Course Summary of Care Provided Minutes Spent on Discharge: 15 Hospital Course: Presented on 12/01/23 in active labor and fetus found to be in breech presentation. Primary Low Transverse Section by . Uncomplicated course. Discharge home on day #1. Weight / BMI Weight Weight: 250 lb 12.8 oz Body Mass Index (BMI) 39.2 ABG / Lab / Microbiology Data 12/02/23 06:05 Laboratory: Laboratory Results - last 24 hr 12/02/23 06:05: WBC 6.6, RBC 3.48 L, Hgb 8.7 L, Hct 27.0 L, MCV 77.6 L, MCH 25.0 L, MCHC 32.2, RDW Std Deviation 37.3, RDW Coeff of Joaquina 13.3, Plt Count 131 L, MPV 11.4 D/C Instructions Discharge Diet: No restrictions Discharge Activity: Return to Normal Activity, May Not Drive and May Shower May resume sexual activity in: 6 weeks Weight Bearing Status: Full weight bearing Lifting Restricted to (Lbs): 20 Call your doctor if your incision/area has: Continuous Slow Oozing, Sudden Increased Bleeding, Increased Pain/ Swelling, Increased Redness, Foul Smelling Discharge and Swelling at the incision site Call your doctor if you observe: Fever of 101 or Higher, Inability to urinate, Inability to have a bowel movement, Using more than 1 pad per hour, Shortness of breath, Dizziness, Fainting spells, Chest pain, Increased palpitations (irregular heartbeat), Calf discomfort and Uncontrolled pain Suture Line Care: Avoid Pulling/Pushing Remove Dressing in: 1 week Cleanse incision/area with: Keep Dressing Clean & Dry When: 1 week for incision check and 6 week for visit Meaningful Use Info Meaningful Use Diagnoses (Choose all that apply): None applicable Discharge Plan Admission Admit Date/Time: 12/01/23 00:25 Primary Reason for Your Visit: Section Attending Provider: Roxi Davis Primary Care Provider: Aliya Dwyer Primary Discharge Orders/Prescriptions Prescriptions: New acetaminophen 500 mg Tablet 1,000 mg PO Q6H Qty: 0 0RF ibuprofen 600 mg Tablet 600 mg PO Q6H Qty: 0 0RF oxycodone 5 mg Tablet 5 mg PO Q6H 7 Days Qty: 10 0RF ferrous sulfate 325 mg (65 mg iron) tablet 325 mg PO BID 30 Days Qty: 60 0RF Continued Prenatabs FA 29-1 mg tablet 1 tab PO DAILY Patient Comments: take 1 tablet by mouth once daily Referrals / Follow Up: Care Physician,Aliya Primary [Primary Care Provider] - Roxi Davis CNM [Med Staff - [facility]] - (1 week and 6 weeks) Disposition Disposition (needs filled in before D/C Order can be placed): Home, Self Care
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
== END 2023-12-02 10:50 | disposition home or self-care (01) | DRG 539 ==
LOC: WPOUT 00:26 → WP 00:26
PROVIDERS: Obstetrics & Gynecology; Admitting Provider Advanced Practice Midwife; Visit Provider Advanced Practice Midwife
DX: O32.1XX0 Maternal care for breech presentation, not applicable or unspecified (principal); O69.2XX0 Labor and delivery complicated by other cord entanglement, with compression, not applicable or unspecified; O99.214 Obesity complicating childbirth; O99.824 Streptococcus B carrier state complicating childbirth; Z37.0 Single live birth; Z3A.40 40 weeks gestation of pregnancy; Z30.2 Encounter for sterilization
CPT/HCPCS: 36415; 59025; 59050; 85025; 85027; 86780; 86850; 86900; 86901; 88302; 99221; A4216; G0378; J2405

== ENCOUNTER 2024-03-14 18:51 | Emergency (ER) | payer MEDICAID, SELFPAY ==
[2024-03-14 18:51] VITALS: BP 133/74; PULSE 85; RESP 18; TEMP 36.4; O2SAT 96; BMI 37.4
--- NOTE | 2024-03-14 19:03 | EX.ED.UPPERE ---
HPI <OLEKSANDR Torres - Last Filed: 03/14/24 19:59> History of Present Illness Chief Complaint: Laceration Narrative Narrative: 28-year-old female cut her right hand and pinky finger on a glass candle jar. She states she dropped the candle a long time ago and it has a sharp edge that she cut her finger on. There were no small pieces of glass. She has no weakness but the tip of her finger feels numb. She is right-hand dominant. Tetanus is up-to-date within the last 5 years. PFSH <OLEKSANDR Torres - Last Filed: 03/14/24 19:59> FOR[facility]LY [facility], [facility] Medical History (Updated 03/14/24 @ 19:59 by OLEKSANDR Torres) Depression Anxiety Home Medications ?Medication ?Instructions ?Recorded ?Last Taken ?Type NK 03/14/24 Unknown History Allergy/AdvReac Type Severity Reaction Status Date / Time No Known Allergies Allergy Verified 03/14/24 18:54 Surgical History (Updated 12/10/23 @ 00:06 by Marielle Levin) History of surgery Social History Smoking Status: Current every day smoker tobacco type: e-cigarettes ROS <OLEKSANDR Torres - Last Filed: 03/14/24 19:59> ROS ED ROS Narrative Neuro: Negative for motor dysfunction. Skin: Positive for laceration. EXAM <OLEKSANDR Torres - Last Filed: 03/14/24 19:59> Physical Exam Narrative Exam Narrative: CONST: Patient sitting in no acute distress. SKIN: 1 cm linear laceration right dorsal fifth metacarpal to the level of subcutaneous tissue. 3 cm laceration left volar pinky pad over distal phalanx to subcutaneous tissue. Neither has visible tendon or bone. EXTREMITIES: Normal appearance of right hand and digits, full range of motion wrist hand MCP PIP and DIP joints. 2+ radial pulse and brisk cap refill. Normal motor and sensory function in median radial and ulnar distributions. NEURO: Alert and answering questions appropriately. PSYCH: Normal affect. Const Vital Signs: 03/14/24 18:51 Temperature 97.6 F L Temperature Source Temporal Pulse Rate 85 Respiratory Rate 18 Blood Pressure 133/74 H Blood Pressure Mean 93 Pulse Ox 96 Oxygen Delivery Method Room Air MDM <OLEKSANDR Torres - Last Filed: 03/14/24 19:59> [facility] Narrative Medical decision making narrative: History gathered from: Patient and spouse Patient cut her right hand on a candle jar. I considered an x-ray but she sliced it on the candle jar and there were no small pieces of glass and on examination there is no evidence of foreign body so this is not needed. The 1 cm laceration right dorsal hand and 3 cm laceration right volar pinky pad both repaired with 2 stitches and 6 stitches respectively with good approximation. Patient tolerated procedure well without complication. I discussed wound care and return precautions and she was discharged in stable condition. Patient seen and evaluated with NATASHA. I personally interviewed and examined the patient. I was involved in all aspects of patient's orders, interpretation of results, and treatment. 28-year-old female laceration right hand small finger at the distal end on the ulnar side and also the dorsum of the right hand. Patient is right-hand dominant. Tetanus up-to-date. 28-year-old female in no acute distress. Vital signs are stable and afebrile. HEENT exam unremarkable. Neck nontender. Lungs clear. Heart regular rhythm. Chest wall nontender. Abdomen soft nontender. Moving all 4 extremities. Right hand is laceration the distal end of the right small finger along the ulnar side is probably 3 cm. Distally slightly decreased sensation past the wound. No obvious foreign body. Minimal bleeding. No infection. The dorsum of the right hand there is about a 1 to 2 cm laceration. No active bleeding there. She has full flexion extension all digits of the right hand. Hand to be locally anesthetized. Cleaned and washed with saline explored and closed using simple interrupted sutures. Patient could potentially have a very distal nerve injury to right index finger but worse location and she would not do anything to repair that. <Dr. Dank Ching MD - Last Filed: 03/14/24 19:10> [facility] Narrative Medical decision making narrative: Patient seen and evaluated with NATASHA. I personally interviewed and examined the patient. I was involved in all aspects of patient's orders, interpretation of results, and treatment. 28-year-old female laceration right hand small finger at the distal end on the ulnar side and also the dorsum of the right hand. Patient is right-hand dominant. Tetanus up-to-date. 28-year-old female in no acute distress. Vital signs are stable and afebrile. HEENT exam unremarkable. Neck nontender. Lungs clear. Heart regular rhythm. Chest wall nontender. Abdomen soft nontender. Moving all 4 extremities. Right hand is laceration the distal end of the right small finger along the ulnar side is probably 3 cm. Distally slightly decreased sensation past the wound. No obvious foreign body. Minimal bleeding. No infection. The dorsum of the right hand there is about a 1 to 2 cm laceration. No active bleeding there. She has full flexion extension all digits of the right hand. Hand to be locally anesthetized. Cleaned and washed with saline explored and closed using simple interrupted sutures. Patient could potentially have a very distal nerve injury to right index finger but worse location and she would not do anything to repair that. History & Record Review Discussion w/independent historian: Patient Procedures <OLEKSANDR Torres - Last Filed: 03/14/24 19:59> Lacerations right dorsal hand: Length: 1 cm Depth: Sub Q Shape: Linear Prep: Sterile Conditions and Shure-Clens Laceration repair: Irrigated and Lidocaine Irrigated (ml): 50 Number of Sutures/[place]: 2 Suture Information: Ethilon, Simple and 5-0 right pinky volar distal phalanx: Length: 3 cm Depth: Sub Q Shape: Linear Prep: Sterile Conditions and Shure-Clens Laceration repair: Irrigated, Lidocaine, Local and Wound explored Irrigated (ml): 100 Number of Sutures/[place]: 6 Suture Information: Ethilon and 5-0 Comment: wound explored, no foreign body or tendon injury Discharge Plan Triage Chief Complaint: Laceration ED Midlevel Provider: Alyssia Romero ED Provider: Dank Ching Dx/Rx/DC Orders Clinical Impression: Laceration of right hand, Laceration of right little finger Instructions: ED Laceration Extremity Prescriptions: No Action NK Primary Care Provider: Care Physician,No Primary Referrals: Care Physician,No Primary [Primary Care Provider] - Activity Restrictions/Additional Instructions: You can shower as normal and then pat dry. Keep clean. Stitches need removed in 7 days. Return sooner if any signs of infection develop like redness, swelling, pus, or fever. Print Language: Belarusian Disposition Disposition: Home, Self Care
[2024-03-14] MEDS: Lidocaine 1% (20 ml mdv) 20 ML Vial INFILT (19:47)
[2024-03-14 20:04] VITALS: BP 115/101; PULSE 93; RESP 20; TEMP 36.3; O2SAT 99
== END 2024-03-14 20:05 | disposition home or self-care (01) ==
PROVIDERS: Emergency Provider Emergency Medicine; Visit Provider Emergency Medicine
DX: S61.411A Laceration without foreign body of right hand, initial encounter (principal); S61.216A Laceration without foreign body of right little finger without damage to nail, initial encounter; F17.290 Nicotine dependence, other tobacco product, uncomplicated; W25.XXXA Contact with sharp glass, initial encounter
CPT/HCPCS: 12002; 99284

== ENCOUNTER 2024-03-24 18:22 | Emergency (ER) | payer MEDICAID, SELFPAY ==
[2024-03-24 18:23] VITALS: BP 119/68; PULSE 80; RESP 18; TEMP 36.6; O2SAT 97; BMI 41.2
--- NOTE | 2024-03-24 19:24 | EX.ED.DYSGE1 ---
HPI History of Present Illness Chief Complaint: Suture Remv [facility] Medical History (Updated 03/24/24 @ 19:[address] Thomas Ulloa DO) Depression Anxiety Home Medications ?Medication ?Instructions ?Recorded ?Last Taken ?Type NK 03/14/24 Unknown History Allergy/AdvReac Type Severity Reaction Status Date / Time No Known Allergies Allergy Verified 03/24/24 18:23 Surgical History (Updated 12/10/23 @ 00:06 by Marielle Levin) History of surgery Social History Smoking Status: Current every day smoker tobacco type: e-cigarettes EXAM Physical Exam Const Vital Signs: 03/24/24 18:23 Temperature 98 F Temperature Source Temporal Pulse Rate 80 Respiratory Rate 18 Blood Pressure 119/68 Blood Pressure Mean 85 Pulse Ox 97 Oxygen Delivery Method Room Air MDM MDM MDM Narrative Medical decision making narrative: HISTORY OF PRESENT ILLNESS: 28-year-old female presents with concern for suture removal. Notes sutures placed on 03/14/2024 REVIEW OF SYSTEMS: Encounter for suture removal PHYSICAL EXAM: Nursing triage notes reviewed, Vital signs reviewed Constitutional: please see mdm Neuro: Intact 5/5 strength with ok sign (median), intact finger abduction (ulnar) intact wrist extension (radial n). Intact sensation in the radial, ulnar, and median nerve distributions. Skin: Post laceration repair lesions noted MEDICAL DECISION MAKING: Chief Complaint: Suture removal External records reviewed: Reviewed prior ED visit noted location and amount of stitches. Factors affecting care: none MDM Narrative: The patient was hemodynamically stable, afebrile and nontoxic-appearing. Exam without signs of infection. Wound is well-healing. Total of 8 stitches were placed. These were removed without issue. The patient and/or family, caregivers express understanding. The patient and/or family, caregivers agrees with the plan. Shared decision making: I will have a discussion with the patient and or visitors regarding risk/benefits of further testing or admission. They will be made aware of of the risk/benefits inherent in this decision they will be given the opportunity to voice understanding. Total critical care time today provided was at least 0 minutes. This excludes separately billable procedures. Critical care time (if documented) is secondary to the patient having high probability of clinically significant/life threatening deterioration in the patient's condition which required my urgent intervention. Impression: 1. Encounter for suture removal Dispo: Discharge home This note was generated with [employer] dictation software. It may contain incorrect words, spelling, and punctuation that were not noted in review of the chart prior to signing. Discharge Plan Triage Chief Complaint: Suture Remv ED Provider: Thomas Ulloa Dx/Rx/DC Orders Clinical Impression: Visit for suture removal Instructions: Sutr or Stap Removal Prescriptions: No Action NK Primary Care Provider: Care Physician,No Primary Referrals: Kevin Gonzalez MD [Med Staff - Active Staff] - Activity Restrictions/Additional Instructions: Thank you for trusting us with your care today! Please take Tylenol (2 pills, 650 mg), ibuprofen (2 pills, 400 mg) every 6 hours as needed for pain and fever control. Please return to the emergency department if your symptoms change or worsen. Please follow with your primary care physician for further outpatient evaluation and management. Print Language: Georgian Disposition Disposition: Home, Self Care Discharge Date/Time: 03/24/24 19:45
== END 2024-03-24 19:45 | disposition home or self-care (01) ==
PROVIDERS: Emergency Provider Emergency Medicine; Visit Provider Emergency Medicine
DX: Z48.02 Encounter for removal of sutures (principal); F17.210 Nicotine dependence, cigarettes, uncomplicated
CPT/HCPCS: 99282

== ENCOUNTER 2025-01-25 18:21 | Emergency (ER) | payer MEDICAID, SELFPAY ==
[2025-01-25 18:22] VITALS: BP 138/105; PULSE 111; RESP 22; TEMP 36.4; O2SAT 98; BMI 33.3
[2025-01-25 19:01] LABS: Internal QC Validated? YES +Cl - CLEAR BKGD; Pregnancy, Serum, hCG Quali. NEGATIVE Negative; Record Kit Lot#, Serum Preg. 947241
[2025-01-25 19:09] LABS: Absolute Lymphocyte Count 2.01 X10^3/uL (0.83-4.51); Absolute Neutrophil Count 5.2 X10^3/uL (2.0-7.7); Basophil# 0.02 X10^3/uL; Basophil% 0.3 % (0-1); Eosinophil# 0.07 X10^3/uL; Eosinophils% 0.9 % (0-5); Hematocrit 35.4 % (37-47); Hemoglobin 11.7 g/dL (12.0-15.0); Lymphocyte # 2.01 X10^3/ul (0.83-4.51); Lymphocyte % 25.7 % (19-41); Mean Corp Hgb Conc 33.1 g/dL (32-36); Mean Corpuscular Hgb 25.7 pg (27.0-32.0); Mean Corpuscular Volume 77.6 fL (81-99); Mean Platelet Vol. 10.4 fl (6.2-12.0); Monocyte# 0.47 X10^3/uL; NRBC Flagged by Analyzer 0 % (0-5); Neutrophil # 5.22 X10^3/uL (2.7-7.7); Neutrophil % 66.7 % (47-70); Platelet Count 227 K/mm3 (150-450); RBC Distribution Width CV 13.8 % (11.6-14.6); RBC Distribution Width SD 39.5 fl (35.1-43.9); Red Blood Count 4.56 M/mm3 (4.2-5.4); White Blood Count 7.8 K/mm3 (4.4-11.0)
[2025-01-25 19:31] LABS: Alcohol, Blood (Medical)-Serum < 10.1 mg/dL (<=10.0); Anion Gap 11 (5-15); BUN 11 mg/dL (4-19); BUN/Creat Ratio 16.4 RATIO (10-20); Calcium,Total 9.9 mg/dL (7.6-11.0); Carbon Dioxide 22.5 mmol/L (21.0-32.0); Chloride 105 mmol/L (98-108); Creatinine, Serum 0.68 mg/dL (0.70-1.20); EST Glomerular Filtration Rate 121 (>60); Glucose 96 mg/dL (70-99); Potassium 3.8 mmol/L (3.3-5.1); Sodium Level 139 mmol/L (133-145)
[2025-01-25 19:48] LABS: Amphetamine Urine NEGATIVE (<1000 ng/mL); Barbiturate Urine NEGATIVE (< 200 ng/mL); Benzodiazepine Urine NEGATIVE (< 200 ng/mL); Buprenorphine Urine NEGATIVE (< 200 ng/mL); Cocaine Urine NEGATIVE (< 300 ng/mL); Fentanyl, Urine NEGATIVE; Methadone Urine NEGATIVE (< 300 ng/mL); Opiates Urine NEGATIVE (< 300 ng/mL); Oxycodone, Urine NEGATIVE (< 100 ng/mL); PCP Urine NEGATIVE (< 25 ng/mL); THC Urine PRESUMPTIVE POSITIVE (< 50 ng/mL)
[2025-01-25 20:41] VITALS: BP 140/86; PULSE 61; RESP 17; O2SAT 99
--- NOTE | 2025-01-25 20:53 | EX.ED.VIS.PS ---
HPI HPI - Psych History of Present Illness Chief Complaint: Mental Health Informant: patient Onset/Context/Timing Onset: Today Context: Gradual Onset Conflict: Family Timing: Continuous Worsened by: Situational factors Relieved by: Nothing Associated Symptoms Associated Symptoms - Psych: Positive for Depressed, Change in Eating, Change in sleeping and Suicidal Thoughts; Negative for Paranoia, Visual Hallucinations or Auditory Hallucinations Specific plan (suicidal thought): Cutting herself Narrative Narrative: Patient presents with depression and suicidal gesture that became worse today. Patient states she has been in an argument with her . Patient states they were for a while but she moved back to the area with him to try to make it work for the children. Patient states that her has been arguing with her more frequently. Patient states that he has been feeling that she is worthless. Patient states that she became upset tonight and cut her left forearm. Patient states she did this with a kitchen knife. Patient states her depression has been getting progressively worse. Patient states her anxiety has gotten worse. Patient also admits to decrease in eating and sleeping habits. Patient denies any visual or auditory hallucinations. Patient denies any paranoid ideations. Patient states she sees the counseling center every 2 weeks but feels like she needs to be seen every week. Patient is attempting to schedule this. [facility] Medical History (Updated 01/25/25 @ 22:[address] Sharad Clemente DO) Panic disorder PTSD (post-traumatic stress disorder) Depression Anxiety Home Medications ?Medication ?Instructions ?Recorded ?Last Taken ?Type NK 03/14/24 Unknown History Allergy/AdvReac Type Severity Reaction Status Date / Time No Known Allergies Allergy Verified 01/25/25 19:01 Surgical History (Updated 01/25/25 @ 21:[address] Sharad Clemente DO) Hx of section History of surgery Social History (Updated 01/25/25 @ 21:[address] Sharad Clemente DO) Smoking Status: Current every day smoker tobacco type: e-cigarettes substance use type: marijuana ROS ROS ED Constitutional Constitutional ED: Denies chills or fever(s) Eyes Eyes: Denies blurry vision or change in vision ENT ENT ED: Denies rhinorrhea or sore throat Cardiovascular Cardiovascular: Reports chest pain; Denies palpitations Respiratory/Chest Respiratory/Chest: Reports dyspnea; Denies cough Gastrointestinal Gastrointestinal: Reports nausea; Denies vomiting Genitourinary Genitourinary ED: Denies dysuria or hematuria Musculoskeletal Musculoskeletal: Reports back pain; Denies neck pain Integumentary Denies abscess or rash Neurologic Neurologic: Denies headache(s) or weakness Psychiatric Psychiatric: Reports depression, suicidal ideation and suicidal thoughts Allergic/Immunologic Allergic/Immunologic ED: Denies mouth swelling or urticaria EXAM Physical Exam Const Vital Signs: 01/25/25 18:22 01/25/25 20:41 Temperature 97.5 F L Temperature Source Temporal Pulse Rate 111 H 61 Respiratory Rate 22 H 17 Blood Pressure 138/105 H 140/86 H Blood Pressure Mean 116 104 Pulse Ox 98 99 Oxygen Delivery Method Room Air Room Air Positive well nourished and well developed General Appearance ED: well developed and NAD HEENT Reports moist mucous membranes normocephalic Neck supple and no JVD Resp normal respiratory effort and clear to auscultation bilaterally Cardio Rate: regular rate Rhythm: regular rhythm GI non-tender and non-distended Palpation: soft Extremity Extremity Narrative: There are 3 superficial linear abrasions over the volar aspect of the left forearm. There is no gapping of the wound margins. There is no active bleeding noted. There is full range of motion. Strength is 5/5 bilateral in the upper and lower extremities. There are no sensory deficits noted. Neuro oriented x3, CN's II-XII intact bilaterally and no sensory deficits noted [place] Coma Scale: document GCS findings Spontaneous Obeys Commands Oriented 15 Sensorium / Orientation: alert Motor Exam: strength 5/5 throughout Psych cooperative Activity / Motor Behavior: avoids eye contact Speech: soft Mood & Affect: depressed, tearful and flat affect Thought Content: No suicidality, No homicidality, No phobia(s), No delusion(s) and No hallucination(s) MDM MDM MDM Narrative Medical decision making narrative: Medical screening labs will be obtained. CBC will be obtained to assess for leukocytosis and anemia. Basic metabolic profile will be obtained to assess for electrolyte abnormality and renal function. Serum hCG will be obtained to assess for . Serum alcohol level will be obtained to assess for alcohol intoxication. Urine drug screen will be obtained to assess for substance abuse. Lab Data Attestation: I reviewed the patient's lab results. Lab results narrative: CBC was reviewed. There is a mild anemia with a hemoglobin of 11.7 and hematocrit of 35.4. Basic metabolic profile was reviewed and was within normal limits. Serum hCG was reviewed and was negative. Serum alcohol level was reviewed and was normal at less than 10.1. Urine drug screen was reviewed and was positive for cannabinoids. Labs: Laboratory Results - last 24 hr 01/25/25 01/25/25 18:30 18:50 WBC 7.8 RBC 4.56 Hgb 11.7 L Hct 35.4 L MCV 77.6 L MCH 25.7 L MCHC 33.1 RDW Std Deviation 39.5 RDW Coeff of Joaquina 13.8 Plt Count 227 MPV 10.4 Immature Gran % (Auto) 0.400 Neut % (Auto) 66.7 Lymph % (Auto) 25.7 [place] % (Auto) 6.0 Eos % (Auto) 0.9 Baso % (Auto) 0.3 Absolute Neuts (auto) 5.2 Absolute Lymphs (auto) 2.01 Nucleated RBC % 0 Sodium 139 Potassium 3.8 Chloride 105 Carbon Dioxide 22.5 Anion Gap 11 BUN 11 Creatinine 0.68 L Estim Creat Clear Calc 145.70 Est GFR (MDRD) Non-Af 121 BUN/Creatinine Ratio 16.4 Glucose 96 Calcium 9.9 Serum , Qual NEGATIVE Urine Opiates Screen NEGATIVE U Buprenorphine Qual NEGATIVE Ur Oxycodone Screen NEGATIVE Urine Methadone Screen NEGATIVE Urine Fentanyl Screen NEGATIVE Ur Barbiturates Screen NEGATIVE Ur Phencyclidine Scrn NEGATIVE Ur Amphetamines Screen NEGATIVE U Benzodiazepines Scrn NEGATIVE Urine Cocaine Screen NEGATIVE U Cannabinoids Screen PRESUMPTIVE POSITIVE Ethyl Alcohol < 10.1 Treatment and Re-Evaluation Narrative: Suicide precautions were maintained here in the emergency department. Crisis was into evaluate the patient. Crisis is able to safety plan the patient home. Crisis reports the patient does have a safe place to go with a friend jacklyn. Patient was instructed to follow-up with the counseling center in 1 to 2 days. Patient was instructed to return if worse in any way. Patient understood and was agreeable with the plan. All questions were answered. Discharge Plan Triage Chief Complaint: Mental Health ED Provider: Sharad Clemente Dx/Rx/DC Orders Clinical Impression: Depression, Suicide gesture Instructions: ED Depression Prescriptions: No Action NK Primary Care Provider: Care Physician,No Primary Referrals: Counseling,Center [Group of Physicians] - 1-2 Days if not improving Care Physician,No Primary [Primary Care Provider] - Print Language: [place] Disposition Disposition: Home, Self Care
[2025-01-25 21:53] VITALS: BP 124/88; PULSE 92; RESP 16; TEMP 36.4; O2SAT 99
== END 2025-01-25 22:07 | disposition home or self-care (01) ==
PROVIDERS: Emergency Provider Emergency Medicine; Visit Provider Emergency Medicine
DX: S59.812A Other specified injuries left forearm, initial encounter (principal); X78.1XXA Intentional self-harm by knife, initial encounter; F32.A Depression, unspecified; Z63.8 Other specified problems related to primary support group; F12.90 Cannabis use, unspecified, uncomplicated; F17.290 Nicotine dependence, other tobacco product, uncomplicated; R07.9 Chest pain, unspecified; R11.0 Nausea; R06.00 Dyspnea, unspecified
CPT/HCPCS: 36415; 80048; 80307; 82077; 84703; 85025; 99285